=== PATIENT | female | born 1960 | race Caucasian/White ===

== ENCOUNTER 2021-10-25 10:07 | Outpatient (CLI) | payer BC, SELFPAY ==
[2021-10-25 14:15] LABS: Albumin* 4.1 g/dL (3.3-5.0); Chloride* 106 mmol/L (96-114)
[2021-10-25 14:16] LABS: Potassium* 3.9 mmol/L (3.6-5.1); Sodium* 139 mmol/L (135-149)
[2021-10-25 14:18] LABS: Alkaline Phosphatase* 71 U/L (40-150); Aspartate Amino Transferase* 24 U/L (12-35); Bilirubin Total* 0.6 mg/dL (0.1-1.5); Blood Urea Nitrogen* 18 mg/dL (7-30); Carbon Dioxide* 30 mmol/L (20-32); Creatinine* 0.7 mg/dL (0.5-1.5); Estimated Glomerular Filt Rate 98 ml/min; Total Protein* 6.5 g/dL (6.0-8.3)
[2021-10-25 14:19] LABS: Alanine Aminotransferase* 17 U/L (4-35); Calcium* 9.1 mg/dL (8.4-10.6); Glucose* 93 mg/dL (60-115)
== END 2021-10-25 10:08 | disposition home or self-care (01) ==
LOC: NFLDREF 10:08
PROVIDERS: PCP Internal Medicine; Visit Provider Internal Medicine
DX: F10.10 Alcohol abuse, uncomplicated (principal)
CPT/HCPCS: 80053

== ENCOUNTER 2021-12-01 09:19 | Outpatient (CLI) | payer BC, SELFPAY ==
--- NOTE | 2021-12-01 09:15 | CRLHL7_ITS ---
For Patients: As a result of the Century Cures Act, medical imaging exams and procedure reports are released immediately into your electronic medical record. You may view this report before your referring provider. If you have questions, please contact your health care provider. BILATERAL MAMMOGRAM WITH COMPUTER-AIDED DETECTION AND TOMOSYNTHESIS TECHNIQUE: CC and MLO views were obtained. These mammographic images have been obtained using full-field digital technique. These mammographic images were interpreted with the benefit of computer-aided detection. Breast Tomosynthesis was used in this interpretation. COMPARISON FILM: 11/26/20, 09/25/19, 08/30/18 [facility]. FINDINGS: There are scattered areas of fibroglandular density IMPRESSION: There is no radiographic evidence for malignancy. ASSESSMENT: BI-RADS Category 1: Negative RECOMMENDATION: Routine screening mammogram in 1 year. A lay language report of this examination will be provided to the patient. Chapito Rosenberg M.D. Diagnostic Radiologist [email or web address] DSM/bhe be/Dictated by: Chapito Rosenberg MD @ 12/01/2021 11:44:00 AM (Electronically Signed)
== END 2021-12-01 09:20 | disposition home or self-care (01) ==
LOC: MAMMO 09:20
PROVIDERS: PCP Internal Medicine; Visit Provider Internal Medicine
DX: Z12.31 Encounter for screening mammogram for malignant neoplasm of breast (principal)
CPT/HCPCS: 77063; 77067

== ENCOUNTER 2023-01-05 09:12 | Outpatient (CLI) | payer OTHER, SELFPAY | END 2023-01-05 09:13 | disposition home or self-care (01) | LOC: NFLDREF 01-06 09:09 | PROVIDERS: PCP Internal Medicine; Referring Provider Internal Medicine; Visit Provider Internal Medicine | DX: M85.80 Other specified disorders of bone density and structure, unspecified site (principal); Z13.6 Encounter for screening for cardiovascular disorders | CPT/HCPCS: 80061; 82306 ==

== ENCOUNTER 2023-03-24 14:14 | Outpatient (CLI) | payer OTHER, SELFPAY ==
--- NOTE | 2023-03-24 14:40 | CRLHL7_ITS ---
For Patients: As a result of the Cures Act, medical imaging exams and procedure reports are released immediately into your electronic medical record. You may view this report before your referring provider. If you have questions, please contact your health care provider. BILATERAL SCREENING MAMMOGRAM WITH COMPUTER-AIDED DETECTION AND TOMOSYNTHESIS TECHNIQUE: CC and MLO views were obtained. These mammographic images have been obtained using full-field digital technique. These mammographic images were interpreted with the benefit of computer-aided detection. Breast Tomosynthesis was used in this interpretation. COMPARISON FILM: 12/01/21, 11/26/20, 09/25/19. FINDINGS: There are scattered areas of fibroglandular density IMPRESSION: There is no radiographic evidence for malignancy. ASSESSMENT: BI-RADS Category 2: Benign RECOMMENDATION: Routine screening mammogram in 1 year. A lay language report of this examination will be provided to the patient. HIPOLITO POLO MD Diagnostic/Nuclear Medicine Radiologist [email or web address] AMAYA/jose be/Dictated by: Hipolito Polo MD @ 03/27/2023 8:34:00 AM (Electronically Signed)
== END 2023-03-24 14:15 | disposition home or self-care (01) ==
LOC: MAMMO 14:15
PROVIDERS: PCP Internal Medicine; Visit Provider Internal Medicine
DX: Z12.31 Encounter for screening mammogram for malignant neoplasm of breast (principal)
CPT/HCPCS: 77063; 77067

== ENCOUNTER 2023-04-15 11:19 | Outpatient (CLI) | payer OTHER, SELFPAY ==
--- OUTSIDE RECORDS SUMMARY | 2023-04-20 10:08 | XMS_ITS | Encounter Summary ---
Author Name Unknown Organization [facility] Address [address], [place] [address] Care Team Providers Care Medical Service Technician Name Role Phone Found, No Pcp MD Primary Care Provider Unavailab le Encounter Details Date Type Department Care Team Description 11/14/2022 9:30 AM CDT Lab Visit [facility] [address] [place] [address] Psoriatic arthritis (HRC); Medication monitoring encounter Social History Tobacco Use Types Packs/Day Years Used Date Smoking Tobacco: Never Smokeless Tobacco: Never Alcohol Use Standard Drinks/Week Comments Yes 10 (1 standard drink = 0.6 oz pu re alcohol) Sex and Gender Information Value Date Recorded Sex Assigned at Not on file Gender Identity Not on file Sexual Orientation Not on file documented as of this encounter Plan of Treatment Upcoming Encounters Date Type Department Care Team Description 06/16/2023 11:15 AM EMAIL MANAGER Appointment [facility] [address] [place] [address] Quinn Oh MD [address] [place] [address] documented as of this encounter Procedures Procedure Name Priority Date/Time Associated Diagnosis Comments CBC AND DIFFERENTIAL PANEL Routine 11/14/2022 9:36 AM CDT Psoriatic arthritis (HRC) Medication monitoring encounter CREATININE / GFR Routine 11/14/2022 9:36 AM CDT Psoriatic arthritis (HRC) Medication monitoring encounter COMPLETE BLOOD COUNT-W/DIFF Routine 11/14/2022 9:36 AM CDT Psoriatic arthritis (HRC) Medication monitoring encounter ALT (SGPT) Routine 11/14/2022 9:36 AM CDT Psoriatic arthritis ([facility]) Medication monitoring encounter documented in this encounter Results * Complete Blood Count-W/Diff (11/14/2022 9:36 AM CDT) [facility] WBC 8.5 3.5 - 10.5 x10(9)/L 11/14/2022 9:48 AM [facility] RBC 4.56 3.90 - 5.03 x10(12)/L 11/14/2022 9:48 AM [facility] Hemoglobin 13.6 12.0 - 15.5 g/dL 11/14/2022 9:48 AM [facility] HCT 41.1 34.9 - 44.5 % 11/14/2022 9:48 AM [facility] MCV 90.1 80.0 - 100.0 fL 11/14/2022 9:48 AM [facility] MCH 29.8 27.6 - 33.3 pg 11/14/2022 9:48 AM [facility] MCHC 33.1 31.5 - 35.2 g/dL 11/14/2022 9:48 AM [facility] RDW 13.3 11.9 - 15.5 % 11/14/2022 9:48 AM [facility] Platelets 317 150 - 450 x10(9)/L 11/14/2022 9:48 AM [facility] Neutrophil Absolute 3.4 1.7 - 7.0 10(9)/L 11/14/2022 9:48 AM [facility] Lymphocyte Absolute 4.2 1.0 - 4.8 10(9)/L 11/14/2022 9:48 AM [facility] Monocyte Absolute 0.8 0.2 - 0.9 10(9)/L 11/14/2022 9:48 AM [facility] Eosinophil Absolute 0.1 0.0 - 0.5 10(9)/L 11/14/2022 9:48 AM [facility] Basophil Absolute 0.0 0.0 - 0.3 10(9)/L 11/14/2022 9:48 AM CDT [facility] Immature Granulocyte % 0.1 0.0 - 0.5 % 11/14/2022 9:48 AM CDT [facility] Blood Venipuncture / Unknown 11/14/2022 9:36 AM CDT 11/14/2022 9:36 AM CDT Quinn Oh MD LAB_1 Performing Organization Address [facility]/ZIP Co de Phone Number [facility] [address] [place] [address], [place] [phone] * Creatinine / GFR (monthly) (11/14/2022 9:36 AM CDT) Creatinine 0.70 0.55 - 1.02 mg/dL 11/14/2022 1:18 PM CDT [facility] GFR, Estimated >60 >60 mL/min/1.7 3m2 11/14/2022 1:18 PM CDT [facility] Blood Venipuncture / Unknown 11/14/2022 9:36 AM CDT 11/14/2022 9:36 AM CDT Quinn Oh MD LAB_1 Performing Organization Address [facility] de Phone Number [facility] [address] [place] [address], [facility] [phone] * ALT (SGPT) (monthly) (11/14/2022 9:36 AM CDT) ALT (SGPT) 21 <=55 U/L 11/14/2022 1:18 PM CDT [facility] Blood Venipuncture / Unknown 11/14/2022 9:36 AM CDT 11/14/2022 9:36 AM CDT Quinn Oh MD LAB_1 Performing Organization Address [facility] Co de Phone Number [facility] [address] [place] [address], [facility] [phone] documented in this encounter Visit Diagnoses Diagnosis Psoriatic arthritis (HRC) Psoriatic arthropathy Medication monitoring encounter Encounter for therapeutic drug monitoring documented in this encounter Care Teams Medical Service Technician Relationship Specialty Start Date End Date Found, No Pcp, [address] [place] [address] PCP - General 11/26/21 documented as of this encounter
--- OUTSIDE RECORDS SUMMARY | 2023-04-20 10:08 | XMS_ITS | Encounter Summary ---
Author Name Unknown [facility] Address [address] [place] [address] Care Team Providers Care Stadium Manager Name Role Phone Found, No Pcp Primary Care Provider Unavailab le Encounter Details Date Type Department Care Team Description 03/16/2023 E-Visit [facility] [address] [place] [address] Quinn Oh MD [address] [place], [place] [address] Social History Tobacco Use Types Packs/Day Years [...] Department Care Team Description 06/16/2023 11:15 AM RF TEST ENGINEER Appointment [facility] [address] [place] [address] Quinn Oh MD [address] [place] [address] documented as of this encounter Visit Diagnoses Not on filedocumented in this encounter Care Teams Stadium Manager Relationship Specialty Start Date End Date Found, No Pcp, [address] [place] [address] PCP - General 11/26/21 documented as of this encounter
--- OUTSIDE RECORDS SUMMARY | 2023-04-20 10:08 | XMS_ITS | Encounter Summary ---
Author Name Unknown Organization [facility] Address [address], [place] [address] Care Team Providers Care Fitness Coach Name Role Phone Found, No Pcp MD Primary Care Provider Unavailab le Reason for Visit * Reason Comments Prior Authorization For Medication Anthony Encounter Details Date Type Department Care Team Description 03/16/2023 Telephone [place] [address] [place] [address]. [place], [place] [phone] Quinn Oh MD [address] [place] [id number] Prior Authorization For Medication (Anthony) Social History Tobacco Use Types Packs/Day Years Used Date Smoking Tobacco: Never Smokeless Tobacco: Never Alcohol Use Standard Drinks/Week Comments Yes 10 (1 standard drink = 0.6 oz pu re alcohol) Sex and Gender Information Value Date Recorded Sex Assigned at Not on file Gender Identity Not on file Sexual Orientation Not on file documented as of this encounter Nursing Notes * Quinn Oh MD - 03/22/2023 4:07 PM CST I called the patient to discuss the potential for allergic reaction to ixekizumab given her prior reaction to dupilumab. She noted that dupilumab caused fairly widespread hives. After some discussionwe decided to pursue alternative treatment. I will do some investigation and get back to her. DENTIAL GAS HEAT TECHNICIAN * Carol Valenzuela - 03/16/2023 4:56 PM CST Anthony CONTI to insurance is Approved, curly t'd to speciality pharmacy [facility]. DENTIAL GAS HEAT TECHNICIAN * Carol Valenzuela - 03/16/2023 4:26 PM CST ----- Message from Quinn Oh MD sent at 03/15/2023 2:53 PM RESIDENTIAL GAS HEAT TECHNICIAN ----- Jomar Cox, could we pursue a change from etanercept to ixekizumab for psoriatic arthritis management?Boris DENTIAL GAS HEAT TECHNICIAN documented in this encounter Plan of Treatment Upcoming Encounters Date Type Department Care Team Description 06/16/2023 11:15 AM RESIDENTIAL GAS HEAT TECHNICIAN Appointment [facility] [address] [place], [place] [address] Quinn Oh MD [facility] [place], [place] [phone] documented as of this encounter Visit Diagnoses Diagnosis Psoriatic arthritis (HRC)- Primary Psoriatic arthropathy documented in this encounter Care Teams Fitness Coach Relationship Specialty Start Date End Date Found, No Pcp, [address] [place] [address] PCP - General 11/26/21 documented as of this encounter
--- OUTSIDE RECORDS SUMMARY | 2023-04-20 10:08 | XMS_ITS | Encounter Summary ---
Author Name Unknown Organization [facility] Address [address], [place] [address] Care Team Providers Care Claim Investigator Name Role Phone Found, No Pcp MD Primary Care Provider Unavailab le Encounter Details Date Type Department Care Team Description 03/13/2023 9:30 AM AIRCRAFT MAINTENANCE DIRECTOR Lab Visit [facility] [address] [place] [address] Psoriatic arthritis (HRC); Medication monitoring encounter; Osteopenia with high risk of fracture; 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 Social History Tobacco Use Types Packs/Day Years [...] Department Care Team Description 06/16/2023 11:15 AM AIRCRAFT MAINTENANCE DIRECTOR Appointment [facility] [address] [place], [place] [address] Quinn Oh MD [facility] [place], [place] [address] documented as of this encounter Procedures Procedure Name Priority Date/Time Associated Diagnosis Comments CBC AND DIFFERENTIAL PANEL Routine 03/13/2023 9:31 AM AIRCRAFT MAINTENANCE DIRECTOR Psoriatic arthritis (HRC) Medication monitoring encounter PROTEIN ELECTROPHORESIS, SERUM DIAGNOSTIC Routine 03/13/2023 9:31 AM AIRCRAFT MAINTENANCE DIRECTOR 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 FREE LIGHT CHAINS, SERUM Routine 03/13/2023 9:31 AM AIRCRAFT MAINTENANCE DIRECTOR 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 ELECTROPHORESIS, SERUM PROTEIN DIAGNOSTIC PANEL Routine 03/13/2023 9:31 AM AIRCRAFT MAINTENANCE DIRECTOR 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 CREATININE / GFR Routine 03/13/2023 9:31 AM AIRCRAFT MAINTENANCE DIRECTOR Psoriatic arthritis ([facility]) Medication monitoring encounter COMPLETE BLOOD COUNT-W/DIFF Routine 03/13/2023 9:31 AM AIRCRAFT MAINTENANCE DIRECTOR Psoriatic arthritis ([facility]) Medication monitoring encounter C-REACTIVE PROTEIN Routine 03/13/2023 9: 31 AM AIRCRAFT MAINTENANCE DIRECTOR 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 ALT (SGPT) Routine 03/13/2023 9:31 AM AIRCRAFT MAINTENANCE DIRECTOR Psoriatic arthritis ([facility]) Medication monitoring encounter CALCIUM Routine 03/13/2023 9:31 AM AIRCRAFT MAINTENANCE DIRECTOR Osteopenia with high risk of fracture documented in this encounter Results * Protein Electrophoresis, Serum Diagnostic (03/13/2023 9:31 AM AIRCRAFT MAINTENANCE DIRECTOR) Total Protein 6.9 6.4 - 8.3 g/dL 03/14/2023 12:08 PM [facility] Albumin 4.5 3.4 - 4.8 g/dL 03/14/2023 12:08 PM [facility] Alpha 1 0.2 0.2 - 0.5 g/dL 03/14/2023 12:08 PM [facility] Alpha 2 0.6 0.5 - 1.1 g/dL 03/14/2023 12:08 PM [facility] Beta 0.7 0.6 - 1.1 g/dL 03/14/2023 12:08 PM [facility] Gamma 0.8 0.7 - 1.6 g/dL 03/14/2023 12:08 PM [facility] Monoclonal Dash 0.0 <=0.0 g/dL 03/14/2023 12:08 PM COUNT INCLUDES THE [facility] Interpretation No monoclonal protein is detected in the serum. 03/14/2023 12:08 PM COUNT INCLUDES THE [facility] Signed Out By [facility] 03/14/2023 12:08 PM [facility] Additional Testing Additional reflex testing not indicated per protocol. 03/14/2023 12:08 PM [facility] Blood Venipuncture / Unknown 03/13/2023 9:31 AM AIRCRAFT MAINTENANCE DIRECTOR 03/13/2023 9:31 AM [facility] Quinn Oh MD LAB_1 Performing Organization Address [facility] Co de Phone Number [facility] [address] [place] [address], [facility] [phone] * Free Light Chains, Serum (03/13/2023 9:31 AM AIRCRAFT MAINTENANCE DIRECTOR) KAPPA LIGHT CHAINS FREE 1.16 0.33 - 1.94 mg/dL 03/14/2023 9:40 AM [facility] FREE LAMBDA, SERUM 0.81 0.57 - 2.63 mg/dL 03/14/2023 9:40 AM [facility] FREE K/L RATIO, SERUM 1.43 0.26 - 1.65 03/14/2023 9:40 AM [facility] Blood Venipuncture / Unknown 03/13/2023 9:31 AM AIRCRAFT MAINTENANCE DIRECTOR 03/13/2023 9:31 AM AIRCRAFT MAINTENANCE DIRECTOR Quinn Oh MD LAB_1 Performing Organization Address [facility]/ZIP Co de Phone Number [facility] [address] [phone] * Complete Blood Count-W/Diff (03/13/2023 9:31 AM [facility]) WBC 4.5 3.5 - 10.5 x10(9)/L 03/13/2023 9:37 AM [facility] RBC 4.49 3.90 - 5.03 x10(12)/L 03/13/2023 9:37 AM [facility] Hemoglobin 13.2 12.0 - 15.5 g/dL 03/13/2023 9:37 AM [facility] HCT 39.8 34.9 - 44.5 % 03/13/2023 9:37 AM [facility] MCV 88.6 80.0 - 100.0 fL 03/13/2023 9:37 AM [facility] MCH 29.4 27.6 - 33.3 pg 03/13/2023 9:37 AM [facility] MCHC 33.2 31.5 - 35.2 g/dL 03/13/2023 9:37 AM [facility] RDW 12.9 11.9 - 15.5 % 03/13/2023 9:37 AM [facility] Platelets 293 150 - 450 x10(9)/L 03/13/2023 9:37 AM [facility] Neutrophil Absolute 2.2 1.7 - 7.0 10(9)/L 03/13/2023 9:37 AM [facility] Lymphocyte Absolute 1.7 1.0 - 4.8 10(9)/L 03/13/2023 9:37 AM [facility] Monocyte Absolute 0.5 0.2 - 0.9 10(9)/L 03/13/2023 9:37 AM [facility] Eosinophil Absolute 0.1 0.0 - 0.5 10(9)/L 03/13/2023 9:37 AM [facility] Basophil Absolute 0.0 0.0 - 0.3 10(9)/L 03/13/2023 9:37 AM [facility] Immature Granulocyte % 0.2 0.0 - 0.5 % 03/13/2023 9:37 AM [facility] Blood Venipuncture / Unknown 03/13/2023 9:31 AM AIRCRAFT MAINTENANCE DIRECTOR 03/13/2023 9:31 AM AIRCRAFT MAINTENANCE DIRECTOR Quinn Oh MD LAB_1 [facility] [address] [place] [address], [facility] [phone] * C-Reactive Protein (03/13/2023 9:31 AM AIRCRAFT MAINTENANCE DIRECTOR) C-Reactive Protein <0.5 0.0 - 0.5 mg/dL 03/13/2023 2:56 PM [facility] Blood Venipuncture / Unknown 03/13/2023 9:31 AM AIRCRAFT MAINTENANCE DIRECTOR 03/13/2023 9:31 AM AIRCRAFT MAINTENANCE DIRECTOR Quinn Oh MD LAB_1 Performing Organization Address [facility]/ZIP Co de Phone Number [facility] [address] [place] [address], [facility] [phone] * Calcium (03/13/2023 9:31 AM AIRCRAFT MAINTENANCE DIRECTOR) Calcium 9.0 8.4 - 10.4 mg/dL 03/13/2023 2:56 PM [facility] Blood Venipuncture / Unknown 03/13/2023 9:31 AM AIRCRAFT MAINTENANCE DIRECTOR 03/13/2023 9:31 AM AIRCRAFT MAINTENANCE DIRECTOR Quinn Oh MD LAB_1 Performing Organization Address [facility] de Phone Number [facility] [id number] [place] [address], [facility] [phone] * Creatinine / GFR (monthly) (03/13/2023 9:31 AM AIRCRAFT MAINTENANCE DIRECTOR) Creatinine 0.70 0.55 - 1.02 mg/dL 03/13/2023 2:56 PM [facility] GFR, Estimated >60 >60 mL/min/1.7 3m2 03/13/2023 2:56 PM [facility] Blood Venipuncture / Unknown 03/13/2023 9:31 AM AIRCRAFT MAINTENANCE DIRECTOR 03/13/2023 9:31 AM AIRCRAFT MAINTENANCE DIRECTOR Quinn Oh MD LAB_1 Performing Organization Address [facility] Co de Phone Number [facility] [address] [place] [address], [facility] [phone] * ALT (SGPT) (monthly) (03/13/2023 9:31 AM AIRCRAFT MAINTENANCE DIRECTOR) ALT (SGPT) 21 <=55 U/L 03/13/2023 3:46 PM AIRCRAFT MAINTENANCE DIRECTOR [facility] Blood Venipuncture / Unknown 03/13/2023 9:31 AM AIRCRAFT MAINTENANCE DIRECTOR 03/13/2023 9:31 AM AIRCRAFT MAINTENANCE DIRECTOR Quinn Oh MD LAB_1 [facility] [address] [place] [address], [facility] [phone] documented in this encounter Visit Diagnoses Diagnosis Psoriatic arthritis (HRC) Psoriatic arthropathy Medication monitoring encounter Encounter for therapeutic drug monitoring Osteopenia with high risk of fracture 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 documented in this encounter Care Teams Claim Investigator Relationship Specialty Start Date End Date Found, No Pcp, [address] [place] [address] PCP - General 11/26/21 documented as of this encounter
--- OUTSIDE RECORDS SUMMARY | 2023-04-20 10:08 | XMS_ITS | Encounter Summary ---
Author Name [facility] Address [address] [place] [address] Care Team Providers Care Manager Heavy Duty Name Role Phone Found, No Pcp MD Primary Care Provider Unavailab le Reason for Visit * Reason Comments Follow-up Encounter Details Date Type Department Care Team Description 03/15/2023 11:45 AM NUMERICAL TOOL PROGRAMMER Office Visit [facility] [address] [place], [place] [phone] Quinn Oh MD [address] [place] [phone] Psoriatic arthritis (HRC) (Primary Dx); 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; Arthritis of carpometacarpal (CMC) joint of both thumbs; Osteopenia with high risk of fracture; Alcohol use; 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); Vaccine counseling Social History Tobacco Use Types Packs/Day Years Used Date Smoking Tobacco: Never Smokeless Tobacco: Never Alcohol Use Standard Drinks/Week Comments Yes 10 (1 standard drink = 0.6 oz pu re alcohol) Sex and Gender Information Value Date Recorded Sex Assigned at Not on file Gender Identity Not on file Sexual Orientation Not on file documented as of this encounter Last Filed Vital Signs Vital Sign Reading Time Taken Comments Blood Pressure 123/78 03/15/2023 11:43 AM NUMERICAL TOOL PROGRAMMER Pulse 71 03/15/2023 11:43 AM NUMERICAL TOOL PROGRAMMER Temperature 36.7 ??C (98 ??F) 03/15/2023 11:43 AM NUMERICAL TOOL PROGRAMMER Respiratory Rate - - Oxygen Saturation - - Inhaled Oxygen Concentration - - Weight - - Height - - Body Mass Index - - documented in this encounter Patient Instructions * Patient Instructions* Quinn Oh MD - 03/15/2023 11:45 AM NUMERICAL TOOL PROGRAMMER You continue to have inflammation in your hands. This is more apparent now with the reduced Enbrel dose. Let's pursue switching to a different medication (Taltz) instead to see if we can get better control. Good job reducing alcohol use. If you are able to eliminate alcohol there are a few additional treatment options available (methotrexate and leflunomide). Continue Fosamax. Be sure to get adequate calcium and vitamin D. Repeat bone density study around 01/2024. Shingrix and RSV vaccinations recommended. Follow-up with labs in 3-4 months. RICAL TOOL PROGRAMMER documented in this encounter Progress Notes * Quinn Oh MD - 03/15/2023 11:45 AM CST RHEUMATOLOGY PROGRESS NOTE Patient: Duyen Miller Preferred Name: Duyen Reason for visit: Eosinophilic fasciitis, psoriatic arthritis, clinical osteporosis Other History: chronic systemic corticosteroid use, anxiety, panic attacks Rheumatic Disease History: The patient follows with Rheumatology for eosinophilic fasciitis and psoriatic arthritis. She established with [facility] in November of 2021. She apparently developed nail psoriasis in 2015. In November of 2017 she developed a hard lump on her right shoulder blade. This was biopsied and found to bemorphea (We do not have records of this pathology). In early February 2018 she rapidly developed limb pain and skin thickening with peau d'orange and morphea (She does not remember ever having a groove sign). She apparently underwent extensive multispecialty evaluation and was ultimately diagnosed with eosinophilic fasciitis based on pathology from a biopsy of her right volar forearm. She was started on prednisone 70 mg per day and slowly weaned down. She noted significant improvement in her skin findings but residual skin tightening on the anterior shins. Rheumatologic Serologies: Positive: None Negative: GUI, double-stranded DNA, MARTINA panel, anticentromere antibody, rheumatoid factor, CCP, HLA-B27 Rheumatologic medications: Current: - Etanercept 50 mg weekly - reduced frequency due to cost - Alendronate 70 mg weekly Prior: Adalimumab, meloxicam, sulfasalazine (photosensitive reaction), methotrexate History of Present Illness: Interval history reviewed. The patient received influenza and updated COVID vaccines. Today the patient reports that she ran out of her Enbrel co-pay card and thus has been rationing her remaining Enbrel shots until the end of the year. She feels like her arthritis has worsened since that time. Shenotes pain particularly in her upper extremities. She feels like there is some swelling in her fingers. She did stop doing her physical therapy exercises for shoulder pain. These have previously beeneffective. She continues on alendronate as prescribed. She continues take calcium and vitamin-D supplements. She denies any new skin rashes or thickening. She continues to decrease alcohol consumption but would like to decrease it further. Social History: She is from [facility]. She has lived in [place] and [place] and moved back to [place] in July of 2021. 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 She loves genealogy. Pain & RAPID3: In flowsheet if completed by patient. Pain 4; RAPID-3 10 OBJECTIVE Physical Examination: VS: BP 123/78 (BP Location: Right Arm, BP Cuff Size: Regular) Pulse 71 Temp 98 ??F (36.7 ??C) (Temporal Artery) General: alert, oriented, no acute distress Skin: onycholysis at several fingernails, chronic smooth shiny skin along the bilateral anterior shins, small flesh-colored bump with scaling on the scalp Eyes: Externally clear ENT: moist mucous membranes without ulcerations noted, nares clear without blood Cardio: regular rate and rhythm on auscultation without significant murmurs, rubs, or gallops Lungs: clear to auscultation bilaterally Lower Extremities: no edema noted Musculoskeletal: All four limbs examined. Tenderness at the bilateral CMC joints. Swelling and tenderness at the 1-5 MCP joints bilaterally, tenderness at several PIP joints bilaterally. Normal rangeof motion in all joints. No dactylitis noted. No pain with pressure at the bilateral medial and lateral epicondyles or the bilateral plantar fascia or Achilles tendon insertion sites. Vascular: palpable radial and dorsalis pedis pulses bilaterally Laboratory Data: - SPEP without monoclonal protein or polyclonal hypergammaglobulinemia - normal free light chain ratio - WBC 4.5, Hgb 13.2, Plt 293, ANC 2.2 - Creatinine 0.7 - ALT 21 - Calcium 9 - CRP <0.5 Radiographic Information: None Microbiology: None Pathology: None Assessment/Plan Duyen Miller is a pleasant 62 y.o. female who presented to the rheumatology department for eosinophilic fasciitis. The patient and I reviewed her evaluation together. Her eosinophilic fasciitis seems to remain under good control. She does however have worsening inflammatory arthritis. We discussed options for management. Unfortunately methotrexate and leflunomide cannot be used due to her alcohol use and she had a reaction to sulfasalazine. We again encouraged her to cut down on alcohol use. For now we will pursue a change from etanercept to ixekizumab. We discussed risks including cold symptoms, diarrhea, upper respiratory tract infections, injection site reactions, immunosuppression with increased risk for infections, reactivation of latent tuberculosis, and new or worsening inflammatory bowel disease(Crohn's disease or ulcerative colitis). A pamphlet on this medication was printed, reviewed with, and provided to the patient. She should continue with current management for osteoporosis. We reviewed her vaccination record and made several recommendations. 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 with high FRAX (22.5% Major osteoporotic fracture risk) on alendronate (started 08/2018 per patient) - Continue appropriate calcium (1200 mg daily in diet and supplements combined) and Vitamin D intake (800 IU daily) - Discussed lifestyle modifications: minimizing falls, attention to balance, weight-bearing exercise, limiting alcohol use, avoiding/minimizing tobacco use, optimizing nutrition - Continue alendronate 70 mg by mouth once per week - Repeat DXA 01/2024 - possible bisphosphonate holiday then #5 Alcohol use - Advised continued decreases #6 Immunosuppression: etanercept #7 Medication safety monitoring: etanercept #8 Vaccination Discussion - Etanercept monitoring: CBC with differential annually - Influenza: recommended annually, 01/30 - COVID: Pfizer 06/28, 07/29, 03/30, Moderna 08/29, bivalent 03/01, 23-24 01/30 - Pneumonia: PPSV23 01/11/2020, PCV20 08/12/2022 - Tetanus: last done in 08/2017 per patient - Shingles: Shingrix recommended - RSV: Recommended RICAL TOOL PROGRAMMER documented in this encounter Plan of Treatment Upcoming Encounters Date Type Department Care Team Description 06/16/2023 11:15 AM NUMERICAL TOOL PROGRAMMER Appointment [facility] [address] [place] [address] Quinn Oh MD [address] [place], [place] [phone] documented as of this encounter Visit Diagnoses Diagnosis Psoriatic arthritis (HRC)- Primary Psoriatic arthropathy 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 Arthritis of carpometacarpal (CMC) joint of both thumbs Osteopenia with high risk of fracture Alcohol use Other problems related to lifestyle 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
--- OUTSIDE RECORDS SUMMARY | 2023-04-20 10:08 | XMS_ITS | Clinical Summary ---
Author Name Unknown Organization [facility] Address [address] [place] [address] Care Team Providers Care Senior Behavioral Scientist Name Role Phone Found, No Pcp MD Primary Care Provider Unavailab le Source Comments You are receiving this document as you are listed as the primary care provider,follow-up provider, or the patient has been referred to you for consultation.This is in compliance with the Medicare and[facility] EHR Incentive Program,which states Providers who transition their patient to another setting of careor provider of care or refers their patient to another provider of care shouldprovide summary care record for each transition of care or referral. [facility] Allergies Active Allergy Reactions Criticality Noted Date Comments Dupilumab Hives High 11/26/2021 Medications Medication Sig Dispensed Refills Start Date End Date Status alendronate (FOSAMAX) 70 MG tablet Take 1 Tablet (70 mg) by mouth once every week. 0 09/30/2021 Active gabapentin (NEURONTIN) 600 MG tablet Take 1 Tablet (600 mg) by mouth three times a day. Pt takes 2 tabs daily 0 06/17/2021 Active oxyCODONE-acetaminophe n (PERCOCET) 5-325 MG tablet Take 1 Tablet by mouth as needed. 0 09/02/2021 Active PARoxetine (PAXIL) 40 MG tablet Take 1 Tablet (40 mg) by mouth daily. 0 11/25/2021 Active valACYclovir (VALTREX) 500 MG tablet Take 1 Tablet (500 mg) by mouth daily. 0 09/16/2021 Active betamethasone dipropionate (DIPROLENE-AF) 0.05 % AUGMENTED creamIndications:Pruri tus Apply topically two times daily as needed. Apply thin coat to the itchy area in the upper back twice a day as needed 60 g 1 06/07/2022 Active Active Problems Problem Noted Date Diagnosed Date Arthritis of carpometacarpal (CMC) joint of both thumbs 04/29/2022 Eosinophilic fasciitis determined by biopsy of s kin 11/26/2021 Psoriatic arthritis 11/26/2021 Osteopenia with high risk of fracture 11/26/2021 Anxiety 11/26/2021 Panic attacks 11/26/2021 Situational depression 11/26/2021 detention current use of systemic steroids 11/26 Immunosuppression due to drug therapy 11/26/2021 Encounters Date Type Department Care Team Description 03/16/2023 E-Visit [facility] [address] [place] [address] Quinn Oh MD 03/16/2023 Telephone [place] [address] [place] [address]. 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); Vaccine counseling 03/13/2023 9:30 AM RICE FARMWORKER Lab Visit [address] [address] Psoriatic arthritis (HRC); Medication monitoring encounter; Osteopenia with high risk of fracture; 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 from Last 3 Months Immunizations Name Administration Dates Next Due PCV20 ([id number]) 08/12/2022 Family History Medical History Relation Name Comments Arthritis Father Heart Disease Father Relation Name Status Comments Father Social History Tobacco Use Types Packs/Day Years Used Date Smoking Tobacco: Never Smokeless Tobacco: Never Tobacco Cessation:Counseling Given: Not Answered Alcohol Use Standard Drinks/Week Comments Yes 10 (1 standard drink = 0.6 oz pu re alcohol) Sex and Gender Information Value Date Recorded Sex Assigned at Not on file Gender Identity Not on file Sexual Orientation Not on file Last Filed Vital Signs Vital Sign Reading Time Taken Comments Blood Pressure 123/78 03/15/2023 11:43 AM RICE FARMWORKER Pulse 71 03/15/2023 11:43 AM RICE FARMWORKER Temperature 36.7 ??C (98 ??F) 03/15/2023 11:43 AM RICE FARMWORKER Respiratory Rate - - Oxygen Saturation - - Inhaled Oxygen Concentration - - Weight 64.7 kg (142 lb 9.6 oz) 11/16/2022 10:45 AM CDT Height 161.3 cm (5' 3.5) 11/26/2021 9:31 AM CDT Body Mass Index 24.86 11/26/2021 9:31 AM CDT Plan of Treatment Upcoming Encounters Date Type Department Care Team Description 06/16/2023 11:15 AM RICE FARMWORKER Appointment [facility] [address] [place], [place] [phone] Quinn Oh MD [facility] [place], [place] [phone] Health Maintenance Due Date Last Done Comments Cervical Cancer Screening Due 1959 Colon Cancer Screening Plan Due 1960 Mammogram 1959 COVID-19 Vaccine (#1) 01/02/1960 HIV Screening (Preventive Services) 1975 Adult Preventive Visit 07/01/1977 DTaP/Tdap/Td (1 - Tdap) 07/01/1978 Cholesterol 07/01/2004 Zoster/Shingles (1 of 2) 07/01/2009 Dexa 01/21/2024 01/20/2022 Hep C Screening (Preventive Services) Completed 11/26/2021 Pneumococcal Aged Out 08/12/2022, 01/11/2020 No longer eligible based on patient's age to complete this topic Influenza Completed 01/10/2023, 02/08/2022, 01/22/2021 HepA Aged Out No longer eligi ble based on patient's age to complete this topic HepB Aged Out No longer eligi ble based on patient's age to complete this topic Hib Aged Out No longer eligi ble based on patient's age to complete this topic IPV (Polio) Aged Out No longer eligi ble based on patient's age to complete this topic MCV4 Aged Out No longer eligi ble based on patient's age to complete this topic Procedures Procedure Name Priority Date/Time Associated Diagnosis Comments PROTEIN ELECTROPHORESIS, SERUM DIAGNOSTIC Routine 03/13/2023 9:31 AM RICE FARMWORKER 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 FREE LIGHT CHAINS, SERUM Routine 03/13/2023 9:31 AM RICE FARMWORKER 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 COMPLETE BLOOD COUNT-W/DIFF Routine 03/13/2023 9:31 AM RICE FARMWORKER Psoriatic arthritis (HRC) Medication monitoring encounter ELECTROPHORESIS, SERUM PROTEIN DIAGNOSTIC PANEL Routine 03/13/2023 9:31 AM RICE FARMWORKER 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 C-REACTIVE PROTEIN Routine 03/13/2023 9: 31 AM RICE FARMWORKER 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 CALCIUM Routine 03/13/2023 9:31 AM RICE FARMWORKER Osteopenia with high risk of fracture CREATININE / GFR Routine 03/13/2023 9:31 AM RICE FARMWORKER Psoriatic arthritis (HRC) Medication monitoring encounter CBC AND DIFFERENTIAL PANEL Routine 03/13/2023 9:31 AM RICE FARMWORKER Psoriatic arthritis (HRC) Medication monitoring encounter ALT (SGPT) Routine 03/13/2023 9:31 AM RICE FARMWORKER Psoriatic arthritis (HRC) Medication monitoring encounter from Last 3 Months Results * Protein Electrophoresis, Serum Diagnostic (03/13/2023 9:31 AM RICE FARMWORKER) Total Protein 6.9 6.4 - 8.3 g/dL 03/14/2023 12:08 PM [facility] Molecule [facility] [employer] CENTRAL LAB Albumin 4.5 3.4 - 4.8 g/dL 03/14/2023 12:08 PM RICE FARMWORKER [facility] [employer] C[facility] Alpha 1 0.2 0.2 - 0.5 g/dL 03/14/2023 12:08 PM [facility] CENTRAL LAB Alpha 2 0.6 0.5 - 1.1 g/dL 03/14/2023 12:08 PM [facility] CENTRAL LAB Beta 0.7 0.6 - 1.1 g/dL 03/14/2023 12:08 PM [facility] CENTRAL LAB Gamma 0.8 0.7 - 1.6 g/dL 03/14/2023 12:08 PM [facility]3] LAB Monoclonal Dash 0.0 <=0.0 g/dL 03/14/2023 12:08 PM [facility] CENTRAL LAB Interpretation No monoclonal protein is detected in the serum. 03/14/2023 12:08 PM [facility]3] LAB Signed Out By [facility] 03/14/2023 12:08 PM [facility]3] LAB Additional Testing Additional reflex testing not indicated per protocol. 03/14/2023 12:08 PM [facility]3] LAB Blood Venipuncture / Unknown 03/13/2023 9:31 AM RICE FARMWORKER 03/13/2023 9:31 AM RICE FARMWORKER Quinn Oh MD LAB_1 Performing Organization Address City/[facility]/ZIP Co de Phone Number [facility] [address] [phone] * Free Light Chains, Serum (03/13/2023 9:31 AM RICE FARMWORKER) KAPPA LIGHT CHAINS FREE 1.16 0.33 - 1.94 mg/dL 03/14/2023 9:40 AM [facility] CENTRAL LAB FREE LAMBDA, SERUM 0.81 0.57 - 2.63 mg/dL 03/14/2023 9:40 AM [facility]3] LAB FREE K/L RATIO, SERUM 1.43 0.26 - 1.65 03/14/2023 9:40 AM [facility]3] LAB Blood Venipuncture / Unknown 03/13/2023 9:31 AM RICE FARMWORKER 03/13/2023 9:31 AM RICE FARMWORKER Quinn Oh MD LAB_1 [facility] [address] [address], [facility] [phone] * Creatinine / GFR (monthly) (03/13/2023 9:31 AM RICE FARMWORKER) Creatinine 0.70 0.55 - 1.02 mg/dL 03/13/2023 2:56 PM [facility] GFR, Estimated >60 >60 mL/min/1.7 3m2 03/13/2023 2:56 PM [facility] Blood Venipuncture / Unknown 03/13/2023 9:31 AM RICE FARMWORKER 03/13/2023 9:31 AM [facility] Quinn Oh MD LAB_1 [facility] [address] [place] [address], [facility] [phone] * Complete Blood Count-W/Diff (03/13/2023 9:31 AM RICE FARMWORKER) WBC 4.5 3.5 - 10.5 x10(9)/L 03/13/2023 9:37 AM [facility] RBC 4.49 3.90 - 5.03 x10(12)/L 03/13/2023 9:37 AM [facility] Hemoglobin 13.2 12.0 - 15.5 g/dL 03/13/2023 9:37 AM [facility] HCT 39.8 34.9 - 44.5 % 03/13/2023 9:37 AM [facility] MCV 88.6 80.0 - 100.0 fL 03/13/2023 9:37 AM [facility] MCH 29.4 27.6 - 33.3 pg 03/13/2023 9:37 AM [facility] MCHC 33.2 31.5 - 35.2 g/dL 03/13/2023 9:37 AM [facility] RDW 12.9 11.9 - 15.5 % 03/13/2023 9:37 AM [facility] Platelets 293 150 - 450 x10(9)/L 03/13/2023 9:37 AM [facility] Neutrophil Absolute 2.2 1.7 - 7.0 10(9)/L 03/13/2023 9:37 AM [facility] Lymphocyte Absolute 1.7 1.0 - 4.8 10(9)/L 03/13/2023 9:37 AM [facility] Monocyte Absolute 0.5 0.2 - 0.9 10(9)/L 03/13/2023 9:37 AM [facility] Eosinophil Absolute 0.1 0.0 - 0.5 10(9)/L 03/13/2023 9:37 AM [facility] Basophil Absolute 0.0 0.0 - 0.3 10(9)/L 03/13/2023 9:37 AM [facility] Immature Granulocyte % 0.2 0.0 - 0.5 % 03/13/2023 9:37 AM [facility] Blood Venipuncture / Unknown 03/13/2023 9:31 AM RICE FARMWORKER 03/13/2023 9:31 AM RICE FARMWORKER Quinn Oh MD LAB_1 Performing Organization Address City/[facility]/ZIP Co de Phone Number [facility] [address] [place] [address], [facility] [phone] * C-Reactive Protein (03/13/2023 9:31 AM RICE FARMWORKER) C-Reactive Protein <0.5 0.0 - 0.5 mg/dL 03/13/2023 2:56 PM [facility] Blood Venipuncture / Unknown 03/13/2023 9:31 AM RICE FARMWORKER 03/13/2023 9:31 AM RICE FARMWORKER Quinn Oh MD LAB_1 Performing Organization Address City/[facility]/ZIP Co de Phone Number [facility] [address] [place] [address], [facility] [phone] * ALT (SGPT) (monthly) (03/13/2023 9:31 AM RICE FARMWORKER) ALT (SGPT) 21 <=55 U/L 03/13/2023 3:46 PM RICE FARMWORKER [facility] Blood Venipuncture / Unknown 03/13/2023 9:31 AM RICE FARMWORKER 03/13/2023 9:31 AM RICE FARMWORKER Quinn Oh MD LAB_1 Performing Organization Address [facility] Co de Phone Number [facility] [address] [place] [address], [facility] [phone] * Calcium (03/13/2023 9:31 AM RICE FARMWORKER) [facility] Signature Calcium 9.0 8.4 - 10.4 mg/dL 03/13/2023 2:56 PM RICE FARMWORKER [facility] Blood Venipuncture / Unknown 03/13/2023 9:31 AM RICE FARMWORKER 03/13/2023 9:31 AM RICE FARMWORKER Quinn Oh MD LAB_1 Performing Organization Address [facility] de Phone Number [facility] [address] [place] [address], [facility] [phone] from Last 3 Months Care Teams Senior Behavioral Scientist Relationship Specialty Start Date End Date Found, No Pcp, [address] [place] [place] [address] PCP - General 11/26/21
--- OUTSIDE RECORDS SUMMARY | 2023-04-20 10:08 | XMS_ITS | Encounter Summary ---
Author Name Unknown [facility] Address [address], [place] [address] Care Team Providers Care Alcohol Still Operator Name Role Phone Found, No Pcp MD Primary Care Provider Unavailab le Reason for Visit * Reason Comments Prior Authorization For Medication Enbre l continuation /Insurance change Encounter Details Date Type Department Care Team Description 11/16/[address] [place], [place] [phone] Quinn Oh MD [address] [place], [place] [phone] Prior Authorization For Medication (Enbrel continuation /Insurance change) Social History Tobacco Use Types Packs/Day Years Used Date Smoking Tobacco: Never Smokeless Tobacco: Never Alcohol Use Standard Drinks/Week Comments Yes 10 (1 standard drink = 0.6 oz pu re alcohol) Sex and Gender Information Value Date Recorded Sex Assigned at Not on file Gender Identity Not on file Sexual Orientation Not on file documented as of this encounter Nursing Notes * Carol Valenzuela - 11/16/2022 12:21 PM CDT Images from the original note were not included. Enbrel PA to insurance is Approved- script t'd to speciality [facility] documented in this encounter Plan of Treatment Upcoming Encounters Date Type Department Care Team Description 06/16/2023 11:15 AM PLUG MAKING OPERATOR Appointment [facility] [address] [place] [address] Quinn Oh MD [address] [place], [place] [phone] documented as of this encounter Visit Diagnoses Diagnosis Psoriatic arthritis (HRC) Psoriatic arthropathy documented in this encounter Care Teams Alcohol Still Operator Relationship Specialty Start Date End Date Found, No Pcp, [address] [place] [address] PCP - General 11/26/21 documented as of this encounter
--- OUTSIDE RECORDS SUMMARY | 2023-04-20 10:08 | XMS_ITS | Encounter Summary ---
Author Name Unknown Organization [facility] Address [address], [place] [address] Care Team Providers Care Maintenance Mechanic Engine Name Role Phone Found, No Pcp MD Primary Care Provider Unavailab le Reason for Referral * Procedure/Equipment (Routine) - Incomplete Specialty Diagnoses / Procedures Referred By Contac t Referred To Contact Diagnoses Osteopenia with high risk of fracture Procedures DXA Bone Density Spine/Hip Quinn Oh MD [address] [place] [address] Referral ID Status Reason Start Date Expiration Date V isits Requested Visits Authorized [id number] Incomplete 01/09/2024 04/09/2025 1 1 Reason for Visit * Reason Comments Follow-up Encounter Details Date Type Department Care Team Description 11/16/2022 10:45 AM CDT Office Visit [facility] [address] [place] [address] Quinn Oh MD [address] [place] [address] 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 (Primary Dx); Psoriatic arthritis (HRC); Osteopenia with high risk of fracture; Vaccine counseling; 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 Continue Enbrel and Fosamax. Be sure to get adequate calcium and vitamin D. Follow-up with labs in 3-4 months. Repeat bone density study around 01/2024. Shingrix vaccination. documented in this encounter Progress Notes * Quinn Oh MD - 11/16/2022 10:45 AM CDT RHEUMATOLOGY PROGRESS NOTE Patient: Duyen Miller Preferred Name: Duyen Reason for visit: Eosinophilic fasciitis and psoriatic arthritis Other History: low bone density, chronic systemic corticosteroid use, anxiety, panic attacks [...] factor, CCP, HLA-B27 Rheumatologic medications: Current: - Naproxen 500 mg twice daily as needed - taking once per day - Etanercept 50 mg weekly - Alendronate 70 mg weekly - patient stopped - Sulfasalazine - stopped due to photosensitive reaction Prior: Adalimumab, meloxicam, sulfasalazine, methotrexate History of Present Illness: Since the patient's last visit she met with physical therapy for shoulder pain. She also developed a photoallergic drug eruption from sulfasalazine. She met with dermatology for evaluation and management of this and was given a burst of prednisone. Today the patient shares that her photoallergic drug rash has cleared up. She has 1 more day of prednisone. She reports that she did not notice any benefit from the sulfasalazine. She is feeling welland denies inflammatory joint symptoms, skin psoriasis, or prolonged morning stiffness. She continues on etanercept once per week. She is pursuing getting Shingrix vaccination at the [facility] pharmacy. She continues to take calcium and vitamin-D but does miss doses from time to time. She did resume alendronate and is tolerating it well. She continues to consume about 3-4 bottles of wine per week. She has not had return of skin thickening. Her shoulders are significantly improved with physical therapy. The patient denies other recent changes to their health history such as new allergies, medications,surgeries, hospitalizations, or medical illnesses. Social History: She is from [facility]. She has lived in [place] and [place] and moved back to [place] in July of 2021. 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 She loves [employer]. Pain & RAPID3: In flowsheet if completed by patient. Pain 2; RAPID-3 5.8 OBJECTIVE Physical Examination: VS: BP 131/77 (BP Location: Left Arm, BP Cuff Size: Regular) Pulse 90 Wt 142 lb 9.6 oz (64.7 kg) BMI 24.86 kg/m?? General: alert, oriented, no acute distress Skin: onycholysis at several fingernails, chronic smooth shiny skin along the bilateral anterior shins Head / Scalp: non-tender Eyes: Externally clear ENT: moist mucous membranes without ulcerations noted, nares clear without blood Cardio: regular rate and rhythm on auscultation without significant murmurs, rubs, or gallops Lungs: clear to auscultation bilaterally Lower Extremities: no edema noted Musculoskeletal: All four limbs examined. Tenderness at the bilateral CMC and 1st MCP joints with positive CMC grind test. No synovitis noted. Normal range of motion in all joints. No dactylitis noted. No pain with pressure at the bilateral medial and lateral epicondyles or the bilateral plantar fascia or Achilles tendon insertion sites. Vascular: palpable radial and dorsalis pedis pulses bilaterally Laboratory Data: - ALT 21 - Creatinine 0.70 - WBC 8.5, Hgb 13.6, Plt 317, ANC 3.4 Radiographic Information: None Microbiology: None Pathology: None Assessment/Plan Duyen Miller is a pleasant 62 y.o. female who presented to the rheumatology department for eosinophilic fasciitis. The patient and I reviewed her evaluation together. She is doing well today although evaluation is confounded by her completing a prednisone taper for her photo-allergic drug reaction. We will discontinue sulfasalazine as she did not think it was providing much benefit. She will continue etanercept. She will continue appropriate calcium and vitamin-D intake and alendronate. We will repeat her bonedensity in about 1 year consider a holiday at that point. We reviewed her vaccination record. We encouraged reduced alcohol use. Follow-up in 3 months. #1 Eosinophilic fasciitis #2 Psoriatic arthritis, HLA-B27 negative (synovitis, tenosynovitis, nail pitting - also suspect enthesitis and dactylitis), high disease activity #3 Bilateral CMC osteoarthritis - Continue etanercept 50 mg weekly - Stop sulfasalazine - CRP, SPEP, and free light chains with next visit #4 Postmenopausal osteoporosis based on low bone density with high FRAX (22.5% Major osteoporotic fracture risk) on alendronate (started 08/2018 per patient) - Continue appropriate calcium (1200 mg daily in diet and supplements combined) and Vitamin D intake (800 IU daily) - Continue alendronate 70 mg by mouth once per week - Calcium with next visit - Repeat DXA 01/2024 - possible bisphosphonate holiday then #5 Alcohol use - Advised continued decreases #6 Immunosuppression: etanercept #7 Medication safety monitoring: etanercept #8 Vaccination Discussion - Etanercept monitoring: CBC with differential every 6 months - Sulfasalazine monitoring: CBC with differential, ALT, creatinine monthly x3 then every 3 months - Influenza: recommended annually, 02/08/2022 - COVID: - Initial series: 06/2020, 07/2020, 03/2021 - Booster: 08/13/2021, bivalent 02/08/2022 - Pneumonia: PPSV23 01/11/2020, PCV20 08/12/2022 - Tetanus: last done in 08/2017 per patient - Shingles: Shingrix twice each dose by 2-6 months, recommended documented in this encounter Plan of Treatment Upcoming Encounters Date Type Department Care Team Description 06/16/2023 11:15 AM MANAGER OF TAX Appointment [facility] [address] [place], [place] [address] Quinn Oh MD [address] [place] [phone] Scheduled Orders Name Type Priority Associated Diagnoses Orde r Schedule DXA Bone Density Spine/Hip Imaging New Routine Osteopenia with high risk of fracture Expected: 01/09/2024 (Approximate), Expires: 01/08/2025 documented as of this encounter Results * C-Reactive Protein (03/13/2023 9:31 AM MANAGER OF TAX) Pathologist [facility] C-Reactive Protein <0.5 0.0 - 0.5 mg/dL 03/13/2023 2:56 PM MANAGER OF TAX [facility] Blood Venipuncture / Unknown 03/13/2023 9:31 AM MANAGER OF TAX 03/13/2023 9:31 AM MANAGER OF TAX Quinn Oh MD LAB_1 [facility] [address] [place] [address], [facility] [phone] * Calcium (03/13/2023 9:31 AM MANAGER OF TAX) [facility] Calcium 9.0 8.4 - 10.4 mg/dL 03/13/2023 2:56 PM MANAGER OF TAX [facility] Blood Venipuncture / Unknown 03/13/2023 9:31 AM MANAGER OF TAX 03/13/2023 9:31 AM MANAGER OF TAX Quinn Oh MD LAB_1 [facility] [address] [place] [address], [facility] [phone] documented in this encounter Visit Diagnoses Diagnosis 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- Primary Psoriatic arthritis (HRC) Psoriatic arthropathy Osteopenia with high risk of fracture Vaccine counseling 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
--- OUTSIDE RECORDS SUMMARY | 2023-04-20 10:09 | XMS_ITS | Encounter Summary ---
Author Name Unknown Organization [facility] Address [address], [place] [address] Care Team Providers Care Director Camp Name Role Phone Found, No Pcp MD Primary Care Provider Unavailab le Encounter Details Date Type Department Care Team Description 09/13/2022 9:30 AM CDT Lab Visit [facility] [address] [place] [address] Psoriatic arthritis (HRC); Medication monitoring [...] Department Care Team Description 06/16/2023 11:15 AM BEEHIVE KILN CHARCOAL BURNER Appointment [facility] [address] [place] [address] Quinn Oh MD [address] [place] [address] documented as of this encounter Procedures Procedure Name Priority Date/Time Associated Diagnosis Comments CBC AND DIFFERENTIAL PANEL Routine 09/13/2022 9:35 AM CDT Psoriatic arthritis (HRC) Medication monitoring encounter CREATININE / GFR Routine 09/13/2022 9:35 AM CDT Psoriatic arthritis (HRC) Medication monitoring encounter COMPLETE BLOOD COUNT-W/DIFF Routine 09/13/2022 9:35 AM CDT Psoriatic arthritis (HRC) Medication monitoring encounter ALT (SGPT) Routine 09/13/2022 9:35 AM CDT Psoriatic arthritis ([facility]) Medication monitoring encounter documented in this encounter Results * Complete Blood Count-W/Diff (09/13/2022 9:35 AM CDT) [facility] WBC 4.7 3.5 - 10.5 x10(9)/L 09/13/2022 9:48 AM [facility] RBC 4.19 3.90 - 5.03 x10(12)/L 09/13/2022 9:48 AM [facility] Hemoglobin 12.5 12.0 - 15.5 g/dL 09/13/2022 9:48 AM [facility] HCT 37.7 34.9 - 44.5 % 09/13/2022 9:48 AM [facility] MCV 90.0 80.0 - 100.0 fL 09/13/2022 9:48 AM [facility] MCH 29.8 27.6 - 33.3 pg 09/13/2022 9:48 AM [facility] MCHC 33.2 31.5 - 35.2 g/dL 09/13/2022 9:48 AM [facility] RDW 13.1 11.9 - 15.5 % 09/13/2022 9:48 AM [facility] Platelets 266 150 - 450 x10(9)/L 09/13/2022 9:48 AM [facility] Neutrophil Absolute 2.3 1.7 - 7.0 10(9)/L 09/13/2022 9:48 AM [facility] Lymphocyte Absolute 1.6 1.0 - 4.8 10(9)/L 09/13/2022 9:48 AM [facility] Monocyte Absolute 0.5 0.2 - 0.9 10(9)/L 09/13/2022 9:48 AM [facility] Eosinophil Absolute 0.4 0.0 - 0.5 10(9)/L 09/13/2022 9:48 AM [facility] Basophil Absolute 0.1 0.0 - 0.3 10(9)/L 09/13/2022 9:48 AM [facility] Immature Granulocyte % 0.2 0.0 - 0.5 % 09/13/2022 9:48 AM CDT [facility] Blood Venipuncture / Unknown 09/13/2022 9:35 AM CDT 09/13/2022 9:38 AM CDT Quinn Oh MD LAB_1 Performing Organization Address [facility]/ZIP Co de Phone Number [facility] [address] [place] [address], [place] [phone] * Creatinine / GFR (monthly) (09/13/2022 9:35 AM CDT) Creatinine 0.70 0.55 - 1.02 mg/dL 09/13/2022 3:13 PM CDT [facility] GFR, Estimated >60 >60 mL/min/1.7 3m2 09/13/2022 3:13 PM CDT [facility] Blood Venipuncture / Unknown 09/13/2022 9:35 AM CDT 09/13/2022 9:38 AM CDT Quinn Oh MD LAB_1 Performing Organization Address [facility] Co de Phone Number [facility] [address] [place] [address], [facility] [phone] * ALT (SGPT) (monthly) (09/13/2022 9:35 AM CDT) ALT (SGPT) 19 <=55 U/L 09/13/2022 3:13 PM CDT [facility] Blood Venipuncture / Unknown 09/13/2022 9:35 AM CDT 09/13/2022 9:38 AM CDT Quinn Oh MD LAB_1 Performing Organization Address [facility]/ZIP Co de Phone Number [facility] [address] [place] [address], [facility] [phone] documented in this encounter Visit Diagnoses Diagnosis Psoriatic arthritis (HRC) Psoriatic arthropathy Medication monitoring encounter Encounter for therapeutic drug monitoring documented in this encounter Care Teams Director Camp Relationship Specialty Start Date End Date Found, No Pcp, [address] [place] [address] PCP - General 11/26/21 documented as of this encounter
--- OUTSIDE RECORDS SUMMARY | 2023-04-20 10:09 | XMS_ITS | Encounter Summary ---
Author Name Unknown Organization [facility] Address [address] [address] Care Team Providers Care Pocketed Spring Assembler Name Role Phone Found, No Pcp Primary Care Provider Unavailab le Encounter Details Date Type Department Care Team Description 08/12/2022 12:10 PM CDT Lab Visit [facility] [address] [place], [place] [phone] Psoriatic arthritis (HRC); snf current use of non-steroidal anti-inflammatories (NSAID); Alcohol use Social History Tobacco Use Types Packs/Day Years [...] Department Care Team Description 06/16/2023 11:15 AM FLIGHT OPERATIONS SPECIALIST Appointment [facility] [address] [place] [address] Quinn Oh MD [address] [place] [address] documented as of this encounter Procedures Procedure Name Priority Date/Time Associated Diagnosis Comments CBC AND DIFFERENTIAL PANEL Routine 08/12/2022 12:22 PM CDT Psoriatic arthritis (HRC) intermediate designer current use of non-steroidal anti-inflammatories (NSAID) CREATININE / GFR Routine 08/12/2022 12:2 2 PM CDT Psoriatic arthritis (HRC) intermediate designer current use of non-steroidal anti-inflammatories (NSAID) COMPLETE BLOOD COUNT-W/DIFF Routine 08/12/2022 12:22 PM CDT Psoriatic arthritis ([facility]) intermediate designer current use of non-steroidal anti-inflammatories (NSAID) C-REACTIVE PROTEIN Routine 08/12/2022 12 :22 PM CDT Psoriatic arthritis ([facility]) snf current use of non-steroidal anti-inflammatories (NSAID) URIC ACID Routine 08/12/2022 12:22 PM CDT Psoriatic arthritis ([facility]) Alcohol use ALT (SGPT) Routine 08/12/2022 12:22 PM CDT Psoriatic arthritis ([facility]) intermediate designer current use of non-steroidal anti-inflammatories (NSAID) BUN Routine 08/12/2022 12:22 PM CDT Psoriatic arthritis ([facility]) snf current use of non-steroidal anti-inflammatories (NSAID) documented in this encounter Results * Complete Blood Count-W/Diff (08/12/2022 12:22 PM CDT) [facility] WBC 5.4 3.5 - 10.5 x10(9)/L 08/12/2022 12:25 PM [facility] RBC 4.62 3.90 - 5.03 x10(12)/L 08/12/2022 12:25 PM [facility] Hemoglobin 13.6 12.0 - 15.5 g/dL 08/12/2022 12:25 PM [facility] HCT 40.7 34.9 - 44.5 % 08/12/2022 12:25 PM [facility] MCV 88.1 80.0 - 100.0 fL 08/12/2022 12:25 PM [facility] MCH 29.4 27.6 - 33.3 pg 08/12/2022 12:25 PM [facility] MCHC 33.4 31.5 - 35.2 g/dL 08/12/2022 12:25 PM [facility] RDW 13.4 11.9 - 15.5 % 08/12/2022 12:25 PM [facility] Platelets 302 150 - 450 x10(9)/L 08/12/2022 12:25 PM [facility] Automated NRBC 0 <=0 /100 WBC 08/12/2022 12:25 PM [facility] Neutrophil Absolute 2.2 1.7 - 7.0 10(9)/L 08/12/2022 12:25 PM [facility] Lymphocyte Absolute 2.4 1.0 - 4.8 10(9)/L 08/12/2022 12:25 PM [facility] Monocyte Absolute 0.5 0.2 - 0.9 10(9)/L 08/12/2022 12:25 PM [facility] Eosinophil Absolute 0.2 0.0 - 0.5 10(9)/L 08/12/2022 12:25 PM [facility] Basophil Absolute 0.1 0.0 - 0.3 10(9)/L 08/12/2022 12:25 PM [facility] Immature Granulocyte % 0.2 0.0 - 0.5 % 08/12/2022 12:25 PM [facility] Blood Venipuncture / Unknown 08/12/2022 12:22 PM CDT 08/12/2022 12:22 PM CDT Quinn Oh MD LAB_1 [facility] [address] [place] [address] [phone] * Uric Acid (08/12/2022 12:22 PM CDT) Uric Acid 3.8 2.6 - 6.0 mg/dL 08/12/2022 4:48 PM [facility] Blood Venipuncture / Unknown 08/12/2022 12:22 PM CDT 08/12/2022 12:22 PM CDT Quinn Oh MD LAB_1 Performing Organization Address [facility] Co de Phone Number [facility] [address] [place] [address], [facility] [phone] * BUN (08/12/2022 12:22 PM CDT) BUN 20 7 - 26 mg/dL 08/12/2022 4:48 PM CDT [facility] Blood Venipuncture / Unknown 08/12/2022 12:22 PM CDT 08/12/2022 12:22 PM CDT Quinn Oh MD LAB_1 Performing Organization Address [facility] Co de Phone Number [facility] [address] [place] [address], [facility] [phone] * C-Reactive Protein (08/12/2022 12:22 PM CDT) C-Reactive Protein <0.5 0.0 - 0.7 mg/dL 08/12/2022 4:48 PM CDT [facility] Blood Venipuncture / Unknown 08/12/2022 12:22 PM CDT 08/12/2022 12:22 PM CDT Quinn Oh MD LAB_1 Performing Organization Address [facility] Co de Phone Number [facility] [address] [place] [address], [facility] [phone] * Creatinine / GFR (08/12/2022 12:22 PM CDT) Creatinine 0.70 0.55 - 1.02 mg/dL 08/12/2022 4:48 PM [facility]T [facility] GFR, Estimated >60 >60 mL/min/1.7 3m2 08/12/2022 4:48 PM CDT [facility] Blood Venipuncture / Unknown 08/12/2022 12:22 PM CDT 08/12/2022 12:22 PM CDT Quinn Oh MD LAB_1 Performing Organization Address [facility]/ZIP Co de Phone Number [facility] [address] [place] [address], [facility] [phone] * ALT (SGPT) (08/12/2022 12:22 PM CDT) ALT (SGPT) 38 <=55 U/L 08/12/2022 4:48 PM CDT [facility] Blood Venipuncture / Unknown 08/12/2022 12:22 PM CDT 08/12/2022 12:22 PM CDT Quinn Oh MD LAB_1 Performing Organization Address [facility] Co de Phone Number [facility] [address] [place] [address], [facility] [phone] documented in this encounter Visit Diagnoses Diagnosis Psoriatic arthritis (HRC) Psoriatic arthropathy intermediate designer current use of non-steroidal anti-inflammatories (NSAID) Encounter for long-term (current) use of non-steroidal anti-inflammatories Alcohol use Other problems related to lifestyle documented in this encounter Care Teams Pocketed Spring Assembler Relationship Specialty Start Date End Date Found, No Pcp, [address] [place] [address] PCP - General 11/26/21 documented as of this encounter
--- OUTSIDE RECORDS SUMMARY | 2023-04-20 10:09 | XMS_ITS | Encounter Summary ---
Author Name Unknown Organization [facility] Address [address] [place] [address] Care Team Providers Care Dishwashing Machine Operator Name Role Phone Found, No Pcp MD Primary Care Provider Unavailab le Encounter Details Date Type Department Care Team Description 05/11/2022 Notes/Orders [facility] Occupational Therapy at [facility] Physical [facility] [address] [place], [place] [phone] Anant Salazar, OTR/L [address] [address] [address] Social History Tobacco Use Types Packs/Day Years Used Date Smoking Tobacco: Never Smokeless Tobacco: Never Alcohol Use Standard Drinks/Week Comments Yes 10 (1 standard drink = 0.6 oz pu re alcohol) Sex and Gender Information Value Date Recorded Sex Assigned at Not on file Gender Identity Not on file Sexual Orientation Not on file documented as of this encounter Progress Notes * Anant Salazar, OTR/L - 05/11/2022 11:59 PM CST Occupational Therapy Discharge Summary Duyen Miller has not attended therapy since last documented visit. There are no further visits scheduled at this time and Duyen is currently considered discharged from therapy. Unable to assess current level of function and goals due to unplanned discharge. OT - Discharge Total Visits: 1 Reason for discharge: Patient has not been consistent with attendance and/or failed to schedule appointments as planned. Primary Therapist: Discharging therapist Please see previous visit documentation of status at last treatment. Anant Salazar, OTR/L P LEADER documented in this encounter Plan of Treatment Upcoming Encounters Date Type Department Care Team Description 06/16/2023 11:15 AM GROUP LEADER Appointment [facility] [address] [place] [address] Quinn Oh MD [address] [place], [place] [phone] documented as of this encounter Visit Diagnoses Not on filedocumented in this encounter Care Teams Dishwashing Machine Operator Relationship Specialty Start Date End Date Found, No Pcp, [address] [place] [address] PCP - General 11/26/21 documented as of this encounter
--- OUTSIDE RECORDS SUMMARY | 2023-04-20 10:09 | XMS_ITS | Encounter Summary ---
Author Name Unknown Organization [facility] Address [address], [place] [address] Care Team Providers Care District Ranger Name Role Phone Found, No Pcp MD Primary Care Provider Unavailab le Reason for Visit * Procedure/Equipment (Routine) - Closed Specialty Diagnoses / Procedures Referred By Mendezac t Referred To Contact Diagnoses Psoriatic arthritis (HRC) Polyarthralgia Pain in both hands Procedures MR Hand Rt W/WO IV Cont Viky Melton PA-C [address] [place] [address] Referral ID Status Reason Start Date Expiration Date Visits Re quested Visits Authorized [id number] Closed 04/18/2022 07/18/2023 1 1 Encounter Details Date Type Department Care Team Description 04/22/2022 9:30 AM FUND ACCOUNTANT Ancillary Procedure [facility] [address] [address] [place] [address] [place] [address] Viky Melton PA-C [address] [place], [place] [phone] Psoriatic arthritis (HRC); Arthralgia, unspecified joint; Pain in both hands Social History Tobacco Use Types Packs/Day Years Used Date Smoking Tobacco: Never Smokeless Tobacco: Never Alcohol Use Standard Drinks/Week Comments Yes 14 (1 standard drink = 0.6 oz pu re alcohol) Cutting down Sex and Gender Information Value Date Recorded Sex Assigned at Not on file Gender Identity Not on file Sexual Orientation Not on file documented as of this encounter Plan of Treatment Upcoming Encounters Date Type Department Care Team Description 06/16/2023 11:15 AM FUND ACCOUNTANT Appointment [facility] [address] [place] [address] Quinn Oh MD [address] [place] [address] documented as of this encounter Procedures Procedure Name Priority Date/Time Associated Diagnosis Comments MR HAND RT W/WO IV CONT Routine 04/22/2022 9:51 AM FUND ACCOUNTANT Psoriatic arthritis (HRC) Arthralgia, unspecified joint Pain in both hands documented in this encounter Results * MR Hand Rt W/WO IV Cont (04/22/2022 9:51 AM FUND ACCOUNTANT) Anatomical Region Laterality Modality Upper Extremity, Hand, Wrist, Skeletal, MSK Righ t Magnetic Resonance 04/22/2022 9:17 AM FUND ACCOUNTANT Impressions 04/22/2022 10:09 AM FUND ACCOUNTANT TECHNIQUE: MRI of the right hand was performed before and following the uncomplicated administration of 7 mL Gadavist intravenously. COMPARISON: Radiographs dated 12/27/2021 FINDINGS: There is fifth MCP joint synovitis. No osteitis or erosions identified. 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 There is associated synovitis of these joints which is likely reactive. There are several scattered intraosseous cysts in the carpal bones and second and third metacarpal heads. There is a metal lunate facet with associated chondromalacia in the lunate. There is mild diffuse flexor tenosynovitis. There is also mild extensor digitorum tenosynovitis. There is no evidence for tendon tear. The visualized muscles and tendons are normal. Visualized soft tissues are unremarkable. IMPRESSION: 1. Fifth MCP joint synovitis. Flexor and extensor tenosynovitis. These findings can be seen with inflammatory arthritis. No osteitis or erosions identified. 2. 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 Narrative Procedure Note Michael Gonzales MD - 04/22/2022 IMPRESSION TECHNIQUE: MRI of the right hand was performed before and following theuncomplicated administration of 7 mL Gadavist intravenously. COMPARISON: Radiographs dated 12/27/2021 FINDINGS: There is fifth MCP joint synovitis. No osteitis or erosionsidentified. 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 Thereis associated synovitis of these joints which is likely reactive. Thereare several scattered intraosseous cysts in the carpal bones and secondand third metacarpal heads. There is a metal lunate facet with associatedchondromalacia in the lunate. There is mild diffuse flexor tenosynovitis.There is also mild extensor digitorum tenosynovitis. There is no evidencefor tendon tear. The visualized muscles and tendons are normal. Visualizedsoft tissues are unremarkable. IMPRESSION: 1. Fifth MCP joint synovitis. Flexor and extensor tenosynovitis. Thesefindings can be seen with inflammatory arthritis. No osteitis or erosionsidentified. 2. 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 Viky Melton PA-C RAD MRI documented in this encounter Visit Diagnoses Diagnosis Psoriatic arthritis (HRC) Psoriatic arthropathy Arthralgia, unspecified joint Pain in both hands documented in this encounter Administered Medications Inactive Administered Medications - up to 3 most recent administrations Medication Order MAR Action Action Date Dose Rate Site gadobutrol (GADAVIST) 1 MMOL/ML injection 7 mL 7 mL, Intravenous, ONCE (NON-SCHEDULED), Starting on Mon04/22/22 at 0925, Until Mon04/22/22 at 0952, For 1 dose Given 04/22/2022 9:52 AM FUND ACCOUNTANT 7 mL sodium chloride 0.9% injection 20 mL 20 mL, Intravenous, ONCE, On Mon04/22/22 at 0945, For 1 dose Given 04/22/2022 9:51 AM FUND ACCOUNTANT 20 mL documented in this encounter Care Teams District Ranger Relationship Specialty Start Date End Date Found, No Pcp, [address] [place] [address] PCP - General 11/26/21 documented as of this encounter
--- OUTSIDE RECORDS SUMMARY | 2023-04-20 10:09 | XMS_ITS | Encounter Summary ---
Author Name [facility] Address [address] [place] [address] Care Team Providers Care Certified Hand Therapist Name Role Phone Found, No Pcp MD Primary Care Provider Unavailab le Reason for Visit * Reason Comments Hand Problem * Therapies (Routine) - New Request Specialty Diagnoses / Procedures Referred By Contalfredo t Referred To Contact Diagnoses Psoriatic arthritis (HRC) Quinn Oh MD [address] [place] [address] Referral ID Status Reason Start Date Expiration Date V isits Requested Visits Authorized [id number] New Request 04/29/2022 04/29/2023 1 1 Encounter Details Date Type Department Care Team Description 05/11/2022 8:15 AM BILLET BED OPERATOR Office Visit [facility] Physical Therapy [address] [address] Anant Salazar, OTR/L [address] [address] [place] [address] Arthritis of carpometacarpal (CMC) joint of both thumbs (Primary Dx); Psoriatic arthritis (HRC) Social History Tobacco Use Types Packs/Day Years [...] Notes * Anant Salazar, OTR/L - 05/11/2022 8:15 AM CST Encounter Date 05/11/2022 Pt [address] [place] Hand Occupational Therapy - Evaluation - Plan of Care Visit Number: 1 [facility] Plan: [facility] / Product Type: Commercial / Initial Certification Period: 05/11/2022 to 07/10/22 Referring Provider: Quinn Oh Referring Diagnosis: Bilateral Thumb CMC DJD Visit Diagnosis: 1. Arthritis of carpometacarpal (CMC) joint of both thumbs 2. Psoriatic arthritis (HRC) Precautions: osteopenia, eosinophilic fasciitis, anxiety Hand Dominance: Right Orders: Evaluate and treat Onset Date: Referral Date: 04/29/2022 SUBJECTIVE Reason for Visit: Patient comes to Hand Occupational Therapy secondary pain in finger joints and thumb joints bilaterally. Patient reports history of pain in hands for years but more pain in hand in the last 6 months.Patient reports increased pain with writing, lifting a glass, using tools like a screwdriver, stapling papers, texting, opening jars, turning a doorknob, holding a paintbrush, holding a book, difficulty holding onto bike handles, vacuuming. Patient states that the evaluation analyst does say she has inflammation in her hand but also regular DJD. Patient also states she has eosinophilic fasciitis thatcould be contributing to her symptoms. Patient Therapy Goals: I would like to have less pain. Past Medical History: Patient has no past medical history on file. 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 Minimal decreased storey abduction bilaterally. Able to make fist with fingers and touch palm with pain in finger joints bilaterally but good fist. STRENGTH: Strength (In pounds): 05/11/2022 Right Left Billing And Quality Technician: 10 25 Lateral Pinch: 10 10 3-Point Pinch: 10 10 EDEMA: mild diffuse swelling in bilateral hands SENSATION: Patient reports that she will wake up sometimes with numbness and tingling. Does have splints that she does not always use. PALPATION: Tender with palpation to all finger and thumb joints bilaterally SPECIAL TESTS: 05/11/2022 Right Left Comments CMC Grind + + Retropulsion + + MP joint instability/laxity + + Shoulder sign + + Ortiz: + = positive; - = negative Clinical Global Impression: Patient rates their overall pain level with activity Date 05/11/2022 Score 8 Outcomes: 05/11/2022 OT - Musculoskeletal - Hand PRWHE (0-100, 0 being best): 60 TODAY'S TREATMENT INTERVENTION: THERAPEUTIC EXERCISES (12 minutes): -Performed and Instructed: The patient was instructed in, performed and provided with written handouts for the following: Digital: tendon gliding and finger abduction and adduction. Thumb: manual release techniques with clip and golf ball, butterfly stretch, retroposition stretch, thumb active abduction, MP flexion and opposition to index finger making an O. MODALITIES (10 minutes with set up): Paraffin applied to involved hand(s) for 15 minutes to prepare tissue for stretch and/or to decrease pain. THERAPEUTIC ACTIVITY (10 minutes): -Therapist provided patient education on the following topics: activity modification, anatomy, biomechanics, diagnosis, ergonomics, joint protection. Focused on joint protection, AE available. Issuedpanel of pearls and help for hands home program. [employer] resource for AE. -Home modalities: patient was instructed in the use of heat/warm water soaks and/or paraffin bath Timed Code Treatment Minutes: 22 minutes Total Treatment Time: 45 minutes ASSESSMENT Therapist Impression/Summary: Patient has bilateral hand pain related to CMC DJD and hand DJD. Patient has inflammation in hand that also could be contributing to her pain. Continue skilled Hand OT for assessment, pt education, orthotic fitting/splinting, and progression of personalized HEP to maximize function and independent with I/ADLS. Occupational Therapy Evaluation Complexity: A Low Complexity Occupational Therapy Evaluation was completed. Occupational profile/history: brief history relating to presenting problem. Assessment: 1-3 performance deficits. Clinical decision making: limited number of treatment options. Significant Impairments: pain, edema, ROM - decreased, and strength - decreased Functional Limitations: Patient reports pain and/or difficulty performing the following tasks/activities: gripping, pinching, lifting a glass, using tools like a screwdriver, stapling papers, texting, opening jars, turning a doorknob, holding a paintbrush, holding a book, difficulty holding onto bike handles, vacuuming Goals/Functional Outcomes: -The patient will be able to lift a glass with minimal to no difficulty in 30 days -The patient will be able to vacuum with minimal to no difficulty in 60 days -The patient will be independent with home program and splint wear and care in 60 days. -The patient will be knowledgeable on joint protection techniques and adaptive equipment available in 60 days Potential Barriers to Goal Achievement or Learning: Rehab prognosis is good to achieved stated goals. Mood, orientation, and behavior were appropriate. Patient was alert and oriented. No apparent barriers to learning. PLAN Planned Intervention/Education: AROM, PROM, joint mobilization, strength, home exercise program, edema control, diagnosis education, soft tissue mobilization, modalities: paraffin bath., splint/orthosis Frequency: 1 x week or every other week Duration: 60 days Discharge Plan: Patient will be discharged from therapy when goals are achieved or patient plateausin progress. Informed Consent: Patient and/or family in agreement with the care plan. Plan for Next Treatment: assess response to treatment, modalities: paraffin, review home exercise program, consider splinting, CMC stabilization exercises, gentle hand strengthening. The internal affairs investigator is completed by the therapist and the referring clinician's electronic signature certifies medical necessity for the plan above. ET BED OPERATOR documented in this encounter Plan of Treatment Upcoming Encounters Date Type Department Care Team Description 06/16/2023 11:15 AM BILLET BED OPERATOR Appointment [facility] [address] [place] [address] Quinn Oh MD [facility] [place] [address] Scheduled Referrals Name Type Priority Associated Diagnoses Orde r Schedule Hand Occupational Therapy Referral Routine Psoriatic arthritis (HRC) Ordered: 04/29/2022 documented as of this encounter Visit Diagnoses Diagnosis Arthritis of carpometacarpal (CMC) joint of both thumbs- Primary Psoriatic arthritis (HRC) Psoriatic arthropathy documented in this encounter Care Teams Certified Hand Therapist Relationship Specialty Start Date End Date Found, No Pcp, [address] [facility] [place] [address] PCP - General 11/26/21 documented as of this encounter
--- OUTSIDE RECORDS SUMMARY | 2023-04-20 10:09 | XMS_ITS | Encounter Summary ---
Author Name Unknown [facility] Address [address] [place] [address] Care Team Providers Care Residential Field Manager Name Role Phone Found, No Pcp MD Primary Care Provider Unavailab le Reason for Visit * Reason Comments RASH Encounter Details Date Type Department Care Team Description 11/01/2022 3:45 PM CDT Office Visit [facility] [address] [place], [place] [address] Viviane Cueto MD [address] [place] [phone] Photoallergic drug eruption (Primary Dx) Social History Tobacco Use Types Packs/Day Years Used Date Smoking Tobacco: Never Smokeless Tobacco: Never Alcohol Use Standard Drinks/Week Comments Yes 10 (1 standard drink = 0.6 oz pu re alcohol) Sex and Gender Information Value Date Recorded Sex Assigned at Not on file Gender Identity Not on file Sexual Orientation Not on file documented as of this encounter Progress Notes * Viviane Cueto MD - 11/01/2022 3:45 PM CDT Chief Complaint Patient presents with RASH Dermatology Problem List Eosinophilic fasciitis symptoms 2018 but diagnosed with a biopsy in [place] in 2019; treated with prednisone, dupilumab(allergic), and most recently Enbrel History of psoriatic arthritis without skin involvement except for history of thickened nails SUBJECTIVE: Duyen Miller is a 62 y.o. female who presents to clinic today for evaluation of vague photo distributed eruption that started October 16 of this year. Patient experienced redness with superimposed erythematous papules that was quite itchy and painful involving the extensor lower arms and extensorforearms extensor knees shins and calves. Her face and chest were spared. Patient had been started on a 2nd course of sulfasalazine August 12 for psoriatic arthritis. Patient states it was very painful to apply sunscreen (causing her to cry) and even the triamcinolone 0.1% cream that had been prescribed as it caused a lot of burning itching, and she eventually hadto stop. The rash is improving with more resolution on the legs and the arms she is maintained on sulfasalazine. She is not sure how helpful it has been for her joint pain or joint swelling. She is due to see her performance test engineer,Dr. Oh,on the 14 of November. Other than this skin eruption in her continue joint discomfort, she is in her usual state of health MEDICATIONS: Reviewed and updated in Epic ALLERGIES: Dupilumab PHYSICAL EXAMINATION: General: Well-appearing female, in no distress, alert and oriented. Area/s examined: Face neck armslegs; see below for pertinent findings. ASSESSMENT AND PLAN: 1. Photoallergic drug eruption Distal extensor arms onto the extensor forearms faint erythematous blanchable patches; extensor knees shins and calves barely perceptible erythematous macules and patches Face neck unremarkable anterior chest chronic background chronic sun changes with erythema and hyperpigmentation I believe this reaction could be related the sulfasalazine and more tense sun exposure. Encouraged her to sun protection with protective clothing. She will remain the sulfasalazine until she follows up with Dr. Oh. Related Medications predniSONE (DELTASONE) 10 MG tablet Take 4 tablets by mouth x4 days; 3 tablets x4 days; 2 tablets x4 days; 1 tablet x4 days then stop FOLLOW UP: Return to clinic p.r.n. based on clinical progress. I have asked him to notify me if notgreatly improved. *This note is created with voice recognition software and may contain typographical errors. documented in this encounter Plan of Treatment Upcoming Encounters Date Type Department Care Team Description 06/16/2023 11:15 AM CRM MARKETING SPECIALIST Appointment [facility] [address] [place] [address] Quinn Oh MD [address] [place] [address] [place] [address] documented as of this encounter Visit Diagnoses Diagnosis Photoallergic drug eruption- Primary Acute dermatitis due to solar radiation documented in this encounter Care Teams Residential Field Manager Relationship Specialty Start Date End Date Found, No Pcp, [address] [place] [address] PCP - General 11/26/21 documented as of this encounter
--- OUTSIDE RECORDS SUMMARY | 2023-04-20 10:09 | XMS_ITS | Encounter Summary ---
Author Name Unknown Organization [facility] Address [address] [place] [address] Care Team Providers Care Slip Operator Name Role Phone Found, No Pcp MD Primary Care Provider Unavailab le Reason for Referral * Therapies (Routine) - New Request Specialty Diagnoses / Procedures Referred By Mariajose gordon Referred To Contact Diagnoses Psoriatic arthritis (HRC) Quinn Oh MD [address] [place] [address] Referral ID Status Reason Start Date Expiration Date V isits Requested Visits Authorized [id number] New Request 04/29/2022 04/29/2023 1 1 Scheduling Instructions Your clinician has recommended an appointment with [facility]. You can quickly make your appointment online at [employer]/[email or web address]. You can also call [phone] for help scheduling your appointment. We suggest you call your health insurance company about your coverage and benefits for this appointment. Question Answer Reason for referral (DX) Thumb arthritis in patient with psoriatic arthritis Appointment urgency as schedule permits Precautions None May use saline for irrigation or cleansing Yes Requested Services Evaluation and Treatment dexamethasone use Yes OPERATOR Reason for Visit * Reason Comments Follow-up Encounter Details Date Type Department Care Team Description 04/29/2022 3:15 PM TUB OPERATOR Office Visit [facility] [address] [place] [address] Quinn Oh MD [address] [place] [address] Psoriatic arthritis (HRC) (Primary Dx); 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; 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); Vaccine counseling; Arthritis of carpometacarpal (CMC) joint of both thumbs; Alcohol use Social History Tobacco Use Types Packs/Day Years Used Date Smoking Tobacco: Never Smokeless Tobacco: Never Alcohol Use Standard Drinks/Week Comments Yes 10 (1 standard drink = 0.6 oz pu re alcohol) Sex and Gender Information Value Date Recorded Sex Assigned at Not on file Gender Identity Not on file Sexual Orientation Not on file documented as of this encounter Patient Instructions * Patient Instructions* Quinn Oh MD - 04/29/2022 3:15 PM TUB OPERATOR - With the decrease in your prednisone your psoriatic arthritis has become more active - Let's try scheduled NSAIDs: naproxen 500 mg twice daily after meals - If this is not effective after at least a month we can look at changing the Enbrel to a differentagent - If this is effective then switch the naproxen to as needed dosing rather than scheduled - Hand therapy - Follow-up in 3 months OPERATOR documented in this encounter Progress Notes * Quinn Oh MD - 04/29/2022 3:15 PM CST RHEUMATOLOGY PROGRESS NOTE Patient: Duyen Miller [...] factor, CCP, HLA-B27 Rheumatologic medications: Current: - Prednisone 5 mg daily - did not start - Etanercept 50 mg weekly Prior: Adalimumab, meloxicam, sulfasalazine, methotrexate History of Present Illness: Since the patient's last visit she met with my colleague GALLITO Melton with increased pain. She underwent an MRI of the right hand which showed synovitis and tenosynovitis. She was provided low-dose prednisone at 5 mg daily. Today the patient notes that she has had a fair amount of pain since coming off the prednisone. This been has in her hands, wrists, elbows, shoulders, chest, and hips. She reports that her hands feelweak due to the pain. She also notes that she is had an increase in nail pitting and a return of whitening of the nails. She notes a prior history of one of the fingers in her hands swelling up like a sausage but nothing recently. She denies other cutaneous psoriasis. She did not start prednisone that was prescribed as she wanted to discuss with us 1st. She has not noticed any return of skin thickening. She denies history of problems with NSAID use or history of GI ulcerations. She shares that she had COVID back in February and was given a course of Paxlovid. She did hold heretanercept during this time. Symptoms resolved relatively quickly. The patient denies other recent changes to their health history such as new allergies, medications, surgeries, hospitalizations, or m edical illnesses. Social History: She is from [place]. She has lived in [place] and [place] and moved back to [place] in July of 2021. 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 She loves [employer]. Pain & RAPID3: In flowsheet if completed by patient. OBJECTIVE Physical Examination: VS: There were no vitals taken for this visit. General: alert, oriented, no acute distress Skin: some pitting and onycholysis on the fingernails, chronic smooth shiny skin along the bilateral anterior shins Head / Scalp: non-tender Eyes: Externally clear ENT: moist mucous membranes without ulcerations noted, nares clear without blood Cardio: regular rate and rhythm on auscultation without significant murmurs, rubs, or gallops Lungs: clear to auscultation bilaterally Lower Extremities: no edema noted Musculoskeletal: All four limbs examined. Bilateral wrist synovitis. Synovitis at the bilateral 5thMCPs and 3rd PIPs. Normal range of motion in all joints. No dactylitis noted. Tender at the bilateral medial and lateral epicondyles, bilateral shoulders, and over the bilateral greater trochanters. No pain with pressure at the bilateral plantar fascia or Achilles tendon insertion sites. Vascular: palpable radial and dorsalis pedis pulses bilaterally Laboratory Data: - ALT 22 - Calcium 9.8 - Creatinine 0.7 - CBC with differential within normal limits - Urinalysis within normal limits - 25 OH vitamin-D 36 - TSH 2.12 - undetectable C-reactive protein - sedimentation rate 11 Radiographic Information: MRI Right hand 04/22/2022: 1. Fifth MCP joint synovitis. Flexor and extensor tenosynovitis. These findings can be seen with inflammatory arthritis. No osteitis or erosions identified. 2. 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 Microbiology: None Pathology: None Assessment/Plan Duyen Miller is a pleasant 61 y.o. female who presented to the rheumatology department for eosinophilic fasciitis. The patient and I reviewed her evaluation together. I shared my impression that her psoriatic arthritis has flared with discontinuation of prednisone. We typically try to avoid long-term prednisone use generally and more specifically in cases of psoriatic arthritis. She has not started the prescribed prednisone and we advised her that we should instead begin use of scheduled NSAIDs for at least 1month. We discussed risks of NSAIDs at length including risk for GI irritation, GI ulceration, hypertension, kidney disease, liver disease, and increased risk for cardiovascular events. A pamphlet on these medications was printed, reviewed with, and provided to the patient. If symptoms improve she can go to as-needed dosing. If symptoms do not improve then we should look at switching her etanercept to a different agent. Wediscussed secukinumab as one option. We discussed risks including cold symptoms, diarrhea, upper respiratory tract infections, injection site reactions, immunosuppression with increased risk for infections, reactivation of latent tuberculosis, and new or worsening inflammatory bowel disease (Crohn's disease or ulcerative colitis). A pamphlet on this medication was printed, reviewed with, and provided to the patient. We also recommended that she meet with our hand therapy team for her bilateral CMC osteoarthritis. We reviewed her vaccination record and made several recommendations. We congratulated her on the recent updates. #1 Eosinophilic fasciitis #2 Psoriatic arthritis, HLA-B27 negative (synovitis, tenosynovitis, nail pitting - also suspect enthesitis and dactylitis) #3 Bilateral CMC osteoarthritis - Discontinue prednisone - Start naproxen 500 mg twice daily after meals - Etanercept 50 mg weekly - Hand therapy #4 Clinical osteoporosis based on low bone density with high FRAX (22.5% Major osteoporotic fracture risk) on alendronate (started 08/2018 per patient) #5 Chronic systemic corticosteroids - finished - Continue appropriate calcium (1200 mg daily in diet and supplements combined) and Vitamin D intake (600-800 IU daily) - Continue alendronate 70 mg by mouth once per week - Repeat DXA in 2023 - possible bisphosphonate holiday then #6 Alcohol use - congratulated her on reduction, advised continued decreases #7 Immunosuppression: etanercept #8 Medication toxicity monitoring: etanercept #9 Vaccination Discussion - Etanercept monitoring: CBC with differential every 6 months - Influenza: recommended annually, 02/08/2022 - COVID: - Initial series: 06/2020, 07/2020, 03/2021 - Booster: 08/13/2021, bivalent 02/08/2022 - Pneumonia: PPSV23 01/11/2020, PCV20 recommended - Tetanus: last done in 08/2017 per patient - Shingles: Shingrix twice each dose by 2-6 months, recommended OPERATOR documented in this encounter Plan of Treatment Upcoming Encounters Date Type Department Care Team Description 06/16/2023 11:15 AM TUB OPERATOR Appointment [facility] [address] [place] [address] Quinn Oh MD [address] [place] [id number] Scheduled Referrals Name Type Priority Associated Diagnoses Orde r Schedule Hand Occupational Therapy Referral Routine Psoriatic arthritis (HRC) Ordered: 04/29/2022 documented as of this encounter Visit Diagnoses Diagnosis Psoriatic arthritis (HRC)- Primary Psoriatic arthropathy 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
--- OUTSIDE RECORDS SUMMARY | 2023-04-20 10:09 | XMS_ITS | Encounter Summary ---
Author Name Unknown Organization [facility] Address [address], [place] [address] Care Team Providers Care Qa Tester Name Role Phone Found, No Pcp MD Primary Care Provider Unavailab le Reason for Visit * Reason Onset Date Comments Refill 05/11/2022 Encounter Details Date Type Department Care Team Description 05/11/2022 Refill [facility] [address] [place], [place] [id number] Quinn Oh MD [facility] [place], [place] [id number] Refill Social History Tobacco Use Types Packs/Day Years Used Date Smoking Tobacco: Never Smokeless Tobacco: Never Alcohol Use Standard Drinks/Week Comments Yes 10 (1 standard drink = 0.6 oz pu re alcohol) Sex and Gender Information Value Date Recorded Sex Assigned at Not on file Gender Identity Not on file Sexual Orientation Not on file documented as of this encounter Nursing Notes * Clemencia Kahn RN - 05/11/2022 9:14 AM CST etanercept (ENBREL SURECLICK) 50 MG/ML pen injection 4 mL 11 01/05/2022 Sig: Inject 50 mg subcutaneously once every week. Indications: Psoriasis associated with Arthritis,L40.50 Route: Subcutaneous Class: E-Prescribing Order #: [id number] Refill too soon, denied. APHONE OPERATOR documented in this encounter Plan of Treatment Upcoming Encounters Date Type Department Care Team Description 06/16/2023 11:15 AM DICTAPHONE OPERATOR Appointment [facility] [address] [place] [address] Quinn Oh MD [address] [place], [place] [id number] documented as of this encounter Visit Diagnoses Not on filedocumented in this encounter Care Teams Qa Tester Relationship Specialty Start Date End Date Found, No Pcp, [address] [place] [address] PCP - General 11/26/21 documented as of this encounter
--- OUTSIDE RECORDS SUMMARY | 2023-04-20 10:09 | XMS_ITS | Encounter Summary ---
Author Name Unknown Organization [facility] Address [address], [place] [address] Care Team Providers Care Hot Wort Settler Name Role Phone Found, No Pcp Primary Care Provider Unavailab le Encounter Details Date Type Department Care Team Description 04/27/2022 Notes/Orders [place] [facility] [address] [place] [address]. [place], [place] [address] Viky Melton PA-C [address] [place], [place] [address] Social History Tobacco Use Types Packs/Day Years [...] Department Care Team Description 06/16/2023 11:15 AM PLANT MAINTENANCE MECHANIC Appointment [facility] [address] [place] [address] Quinn Oh MD [address] [place], [place] [phone] documented as of this encounter Visit Diagnoses Not on filedocumented in this encounter Care Teams Hot Wort Settler Relationship Specialty Start Date End Date Found, No Pcp, [address] [place] [address] PCP - General 11/26/21 documented as of this encounter
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
--- OUTSIDE RECORDS SUMMARY | 2023-04-20 10:09 | XMS_ITS | Encounter Summary ---
Author Name Unknown Organization [facility] Address [address], [place] [address] Care Team Providers Care Aerospace Engineer Officer Armament Name Role Phone Found, No Pcp MD Primary Care Provider Unavailab le Reason for Visit * Reason Comments Refill Encounter Details Date Type Department Care Team Description 10/19/2022 Refill [facility] [address] [place] [address] Quinn Oh MD [address] [place] [address] Refill Social History Tobacco Use Types Packs/Day [...] Nursing Notes * Clemencia Kahn RN - 10/19/2022 9:26 AM CDT Provider reached out to patient 10/13 regarding possible dose change, message was read. Denying this request as provider has suggested an increase but is waiting to hear back from patient. documented in this encounter Plan of Treatment Upcoming Encounters Date Type Department Care Team Description 06/16/2023 11:15 AM FURNACE FILLER Appointment [facility] [address] [place] [address] Quinn Oh MD [address] [place], [place] [address] documented as of this encounter Visit Diagnoses Diagnosis Psoriatic arthritis (HRC) Psoriatic arthropathy documented in this encounter Care Teams Aerospace Engineer Officer Armament Relationship Specialty Start Date End Date Found, No Pcp, [address] [place] [address] PCP - General 11/26/21 documented as of this encounter
--- OUTSIDE RECORDS SUMMARY | 2023-04-20 10:09 | XMS_ITS | Encounter Summary ---
Author Name Unknown Organization [facility] Address [address] [address] Care Team Providers Care Outside Sales Consultant Name Role Phone Found, No Pcp MD Primary Care Provider Unavailab le Reason for Visit * Reason Comments Refill Encounter Details Date Type Department Care Team Description 11/03/2022 Refill [facility] [address] [place], [place] [address] Quinn Oh MD [address] [place] [id number] Refill Social History Tobacco Use Types Packs/Day [...] Nursing Notes * Clemencia Kahn RN - 11/03/2022 12:11 PM CDT Called patient and relayed message. Nothing further needed at this time. * Quinn Oh MD - 11/03/2022 11:52 AM CDT Let's stop the sulfasalazine for the time being. We have follow-up soon (11/16) and can discuss further then. * Clemencia Kahn RN - 11/03/2022 10:45 AM CDT Patient saw dermatology yesterday. Derm suggested to go off Sulfasalazine related to skin issues asper her message 10/13/22. Patient states she doesn't feel she is getting much relief if any from her arthritis sx with the sulfasalazine. Also, her derm has put her on a Prednisone taper related to theskin reaction. Patient does not know if she should continue with the Sulfasalazine or not. Routing to provider to please advise. documented in this encounter Plan of Treatment Upcoming Encounters Date Type Department Care Team Description 06/16/2023 11:15 AM MACHINE ASSEMBLER Appointment [facility] [address] [place], [place] [address] Quinn Oh MD [facility] [place] [address] documented as of this encounter Visit Diagnoses Diagnosis Psoriatic arthritis (HRC) Psoriatic arthropathy documented in this encounter Care Teams Outside Sales Consultant Relationship Specialty Start Date End Date Found, No PcpMD [address] [place] [address] PCP - General 11/26/21 documented as of this encounter
--- OUTSIDE RECORDS SUMMARY | 2023-04-20 10:09 | XMS_ITS | Encounter Summary ---
Author Name Unknown Organization [facility] Address [address] [address] Care Team Providers Care Aerospace Engineer Officer Armament Name Role Phone Found, No Pcp MD Primary Care Provider Unavailab le Encounter Details Date Type Department Care Team Description 10/13/2022 9:30 AM CDT Lab Visit [facility] [address] [place] [address] Psoriatic arthritis (HRC); Medication monitoring [...] Department Care Team Description 06/16/2023 11:15 AM TUBE DRAWER Appointment [facility] [address] [place] [address] Quinn Oh MD [address] [place] [address] documented as of this encounter Procedures Procedure Name Priority Date/Time Associated Diagnosis Comments CBC AND DIFFERENTIAL PANEL Routine 10/13/2022 9:27 AM CDT Psoriatic arthritis (HRC) Medication monitoring encounter CREATININE / GFR Routine 10/13/2022 9:27 AM CDT Psoriatic arthritis (HRC) Medication monitoring encounter COMPLETE BLOOD COUNT-W/DIFF Routine 10/13/2022 9:27 AM CDT Psoriatic arthritis (HR) Medication monitoring encounter ALT (SGPT) Routine 10/13/2022 9:27 AM CDT Psoriatic arthritis ([facility]) Medication monitoring encounter documented in this encounter Results * Complete Blood Count-W/Diff (10/13/2022 9:27 AM CDT) [facility] WBC 4.1 3.5 - 10.5 x10(9)/L 10/13/2022 9:29 AM T [facility] RBC 4.40 3.90 - 5.03 x10(12)/L 10/13/2022 9:29 AM [facility] Hemoglobin 12.9 12.0 - 15.5 g/dL 10/13/2022 9:29 AM [facility] HCT 39.5 34.9 - 44.5 % 10/13/2022 9:29 AM [facility] MCV 89.8 80.0 - 100.0 fL 10/13/2022 9:29 AM [facility] MCH 29.3 27.6 - 33.3 pg 10/13/2022 9:29 AM [facility] MCHC 32.7 31.5 - 35.2 g/dL 10/13/2022 9:29 AM [facility] RDW 13.0 11.9 - 15.5 % 10/13/2022 9:29 AM [facility] Platelets 260 150 - 450 x10(9)/L 10/13/2022 9:29 AM [facility] Neutrophil Absolute 1.8 1.7 - 7.0 10(9)/L 10/13/2022 9:29 AM [facility] Lymphocyte Absolute 1.5 1.0 - 4.8 10(9)/L 10/13/2022 9:29 AM [facility] Monocyte Absolute 0.5 0.2 - 0.9 10(9)/L 10/13/2022 9:29 AM [facility] Eosinophil Absolute 0.3 0.0 - 0.5 10(9)/L 10/13/2022 9:29 AM [facility] Basophil Absolute 0.0 0.0 - 0.3 10(9)/L 10/13/2022 9:29 AM CDT [facility] Immature Granulocyte % 0.2 0.0 - 0.5 % 10/13/2022 9:29 AM CDT [facility] Blood Venipuncture / Unknown 10/13/2022 9:27 AM CDT 10/13/2022 9:27 AM CDT Quinn Oh MD LAB_1 Performing Organization Address [facility]/ZIP Co de Phone Number [facility] [address] [place] [address], [place] [phone] * Creatinine / GFR (monthly) (10/13/2022 9:27 AM CDT) Creatinine 0.70 0.55 - 1.02 mg/dL 10/13/2022 1:06 PM [facility] GFR, Estimated >60 >60 mL/min/1.7 3m2 10/13/2022 1:06 PM CDT [facility] Blood Venipuncture / Unknown 10/13/2022 9:27 AM CDT 10/13/2022 9:27 AM CDT Quinn Oh MD LAB_1 Performing Organization Address [facility] Co de Phone Number [facility] [address] [place] [address], [facility] [phone] * ALT (SGPT) (monthly) (10/13/2022 9:27 AM CDT) ALT (SGPT) 16 <=55 U/L 10/13/2022 1:06 PM CDT [facility] Blood Venipuncture / Unknown 10/13/2022 9:27 AM CDT 10/13/2022 9:27 AM CDT Quinn Oh MD LAB_1 Performing Organization Address [facility]/ZIP Co de Phone Number [facility] [address] [place] [address], [facility] [phone] documented in this encounter Visit Diagnoses Diagnosis Psoriatic arthritis (HRC) Psoriatic arthropathy Medication monitoring encounter Encounter for therapeutic drug monitoring documented in this encounter Care Teams Aerospace Engineer Officer Armament Relationship Specialty Start Date End Date Found, No Pcp, [address] [place] [address] PCP - General 11/26/21 documented as of this encounter
--- OUTSIDE RECORDS SUMMARY | 2023-04-20 10:09 | XMS_ITS | Encounter Summary ---
Author Name Unknown Organization [facility] Address [address] [place] [address] Care Team Providers Care Postdoctoral Fellow Name Role Phone Found, No Pcp MD Primary Care Provider Unavailab le Reason for Visit * Reason Comments Skin Check FBE, has history of eosinophilic fascitis and wants lower legs looked at. Has concerning spots on right lower abdomen and wants to talk about nail problem. Had previous biopsy on back of neck and site still itches. * Consult/Transfer Care (Routine) - Closed Specialty Diagnoses / Procedures Referred By Contalfredo t Referred To Contact Dermatology Diagnoses Diffuse (eosinophilic) fasciitis Arthropathic psoriasis, unspecified eosinophilic fasciitis psoriatic arthritis Celina Lopez MD [address] [place] [address] [place] [address] [place] [id number] Referral ID Status Reason Start Date Expiration Date Visits Re quested Visits Authorized [id number] Closed 09/16/2021 12/16/2022 1 1 Encounter Details Date Type Department Care Team Description 06/07/2022 9:45 AM VEHICLE FARE COLLECTOR Office Visit [facility] [address] [place] [address] Viviane Cueto MD [address] [place], [place] [phone] Neoplasm of skin (Primary Dx); Multiple benign nevi; Lentigines; Seborrheic keratoses; Salter hemangioma; Pruritus; Hyperpigmentation; Dilated pore of Melecio Social History Tobacco Use Types Packs/Day Years [...] Progress Notes * Viviane Cueto MD - 06/07/2022 9:45 AM CST Images from the original note were not included. Name: Duyen Miller : 1960 Encounter Date: 06/07/2022 Dermatology Problem List History of morphea Eosinophilic fasciitis symptoms 2018 but diagnosed with a biopsy in [place] in 2019; treated with prednisone, dupilumab(allergic), and most recently Enbrel History of psoriatic arthritis without skin involvement except for history of thickened nails SUBJECTIVE: Duyen Miller is a 61 y.o. female here for a skin check. Patient is currently on Enbrel for eosinophilic fasciitis. No personal or family history of skin cancer. Patient states that she is a spot on upper back that was biopsied 2018 in the areas still itches hedoes scratch at it occasionally. Patient is followed by Dr. Oh in Rheumatology [Dr. Oh's note from 11/26/2021-excellent summary of course before presenting nat [facility]] Patient is a mole that she is had for number of years on her right lateral abdomen. She states it for 3 4 months it was intensely itchy and then the color change to be customer experience intern at the periphery. MEDICATIONS: Reviewed in Epic Allergies Allergen Reactions Dupilumab Hives PHYSICAL EXAM: She is a pleasant, alert and oriented female in no apparent distress. Examination of scalp, head, neck, R and L upper extremities, chest, back, abdomen, breasts, buttocks, and R and L lower extremities was performed with pertinent findings below. ASSESSMENT AND PLAN: Neoplasm of skin (HRC) Right Abdomen (side) - Lower 7 x 4 mm brown macule with customer experience intern rim Skin Biopsy (No CPT) Type of biopsy: punch Punch size: 8 mm Suture size: 4-0 Suture type: nylon Suture removal (days): 14 Hemostasis achieved with: suture Outcome: patient tolerated procedure well Post-procedure details: sterile dressing applied and wound care instructions given Dressing type: petrolatum and pressure dressing Specimen 1 - Surgical Path, Dermatology Clinical Impression: r/o atypical nevus Pruritus Right upper back linear well-healed scar with surrounding poorly defined hyperpigmentation, minimally lichenified Related Medications betamethasone dipropionate (DIPROLENE-AF) 0.05 % AUGMENTED cream Apply topically two times daily as needed. Apply thin coat to the itchy area in the upper back twice a day as needed In addition my handout on vxts-lru-hjdxoad anti-itch measures was explained provided. Seborrheic keratoses-chronic. Reassurance given. Scattered well demarcated, yellow/light brown/dark brown, dry and/waxy, stuck on papules/plaque Benign; reassurance. Capillary hemangiomata-chronic. Scattered pink/purple vascular macules/papules noted throughout the exam. Benign; reassurance. Solar lentigines-chronic. Light brown macules in sun-exposed areas. Benign; reassurance. Benign appearing nevi 1-8 mm symmetric, regularly bordered, uniformly colored brown/pink flesh colored macules and papules noted throughout the exam. She will monitor these. Hyperpigmentation-likely burned-out areas of morphea/eosinophilic fasciitis Upper back shins very faint light brown patches Dilated pore Right nasal wall of the junction of the cheek is a dilated pore with surrounding normal skin Sun protection measures were recommended as well as monthly self skin checks. FOLLOW UP: Return to clinic 1 year, sooner if concerns. CLE FARE COLLECTOR documented in this encounter Plan of Treatment Upcoming Encounters Date Type Department Care Team Description 06/16/2023 11:15 AM VEHICLE FARE COLLECTOR Appointment [facility] [address] [place], [place] [phone] Quinn Oh MD [address] [place] [phone] documented as of this encounter Procedures Procedure Name Priority Date/Time Associated Diagnosis Comments SKIN BIOPSY Routine 06/07/2022 10:02 AM VEHICLE FARE COLLECTOR Neoplasm of skin SURGICAL PATHOLOGY, DERMATOLOGY Routine 06/07/2022 10:02 AM VEHICLE FARE COLLECTOR Neoplasm of skin documented in this encounter Results * Skin Biopsy (No CPT) (06/07/2022 10:02 AM VEHICLE FARE COLLECTOR) Narrative EXTERNAL RESULTS - 06/07/2022 10:02 AM VEHICLE FARE COLLECTOR Type of biopsy: punch ?? Punch size: ??8 mm Suture size: ??4-0 Suture type: nylon ?? Suture removal (days): ??14 Hemostasis achieved with: suture ?? Outcome: patient tolerated procedure well ?? Post-procedure details: sterile dressing applied and wound care instructions given ?? Dressing type: petrolatum and pressure dressing ?? Viviane Cueto MD DERM PROCEDURE ORDER ARIELLE EXTERNAL RESULTS * Surgical Path, Dermatology (06/07/2022 10:02 AM VEHICLE FARE COLLECTOR) Case Report Surgical Pathology Report ? Case: [id number] ? Authorizing Provider: ??Viviane Cueto MD ? Collected: ? 06/07/2022 1002 ? Ordering Location: ? [facility] ? Received: ?06/08/2022 0800 ? Pathologist: ? Darrion Soto MD ? Specimen: ?Skin, Right Abdomen (side) - Lower ? 06/14/2022 2:14 PM [facility] [address] DERMATOLOGY FINAL DIAGNOSIS A. Skin, Right Abdomen (side) - Lower, punch: - Benign compound melanocytic nevus. 06/14/2022 2:14 PM [facility] [address] DERMATOLOGY Clinical Information Clinical Impression: r/o atypical nevus 06/14/2022 2:14 PM [facility] [address] DERMATOLOGY Microscopic Description Microscopic examination is performed. 06/14/2022 2:14 PM [facility] [address] DERMATOLOGY Special Stains A portion of the technical staining [place] [address]. The professional interpretation was performed at [facility]. 06/14/2022 2:14 PM [facility] [address] DERMATOLOGY Gross Description A: Received in formalin, labeled with the patient's name and Skin, Right Abdomen (side) - Lower is a 8 x 8 x 5 mm punch biopsy of skin. The specimen is marked with blue ink, bisected, and submitted entirely in one cassette. TV 06/14/2022 2:14 PM [facility] [address] DERMATOLOGY Embedded Images 06/14/2022 2:14 PM [facility] [address] DERMATOLOGY Skin (Skin) 06/07/2022 10:0 2 AM VEHICLE FARE COLLECTOR 06/08/2022 8:00 AM VEHICLE FARE COLLECTOR Comment:Clinical Impression: r/o atypical nevus Viviane Cueto MD LAB PATHOLOGY [facility] [address] [place] [address] documented in this encounter Visit Diagnoses Diagnosis Neoplasm of skin (HRC)- Primary Neoplasm of unspecified nature of bone, soft tissue, and skin Multiple benign nevi Benign neoplasm of skin, site unspecified Lentigines Other dyschromia Seborrheic keratoses Salter hemangioma Nevus, non-neoplastic Pruritus Unspecified pruritic disorder Hyperpigmentation Dilated pore of Melecio documented in this encounter Care Teams Postdoctoral Fellow Relationship Specialty Start Date End Date Found, No Pcp, [address] [place] [address] PCP - General 11/26/21 documented as of this encounter
--- OUTSIDE RECORDS SUMMARY | 2023-04-20 10:09 | XMS_ITS | Encounter Summary ---
Author Name Unknown Organization [facility] Address [address], [place] [address] Care Team Providers Care Footwear Stitcher Name Role Phone Found, No Pcp MD Primary Care Provider Unavailab le Reason for Visit * Reason Comments Shoulder Problem * Therapies (Routine) - New Request Specialty Diagnoses / Procedures Referred By Mariajose t Referred To Contact Diagnoses Chronic pain of both shoulders Quinn Oh MD [address] [place] [address] Referral ID Status Reason Start Date Expiration Date V isits Requested Visits Authorized [id number] New Request 08/12/2022 08/12/2023 1 1 Encounter Details Date Type Department Care Team Description 09/20/2022 2:45 PM CDT Therapy [facility] [address] [phone] Darline Lozano, PT [address] [place], [place] [phone] Chronic pain of both shoulders (Primary Dx) Social History Tobacco Use Types [...] as of this encounter Progress Notes * Darline Lozano, PT - 09/20/2022 2:45 PM CDT [facility] Physical Therapy - Shoulder Evaluation/Plan of Care Initial Certification Period: 09/20/2022 to 12/19/22 Referring Provider: Quinn Oh Visit Diagnosis: 1. Chronic pain of both shoulders Precautions: none Orders: Evaluate & treat Onset/Referral Date: onset 4-5 months ago, referral 08/12/22 SUBJECTIVE Reason for Visit: She has been here before for her hands, but wasn't a good pt. She promises she will be better with her shoulders because they are killing her. The shoulders have been killing her for 4-5 months now, can't sleep, just miserable. Just sitting here they just ache. Denies any recent changes that could contribute. Doctor just upped her meds because she was tolerating the basic dose well. Was on this med before but wonders if she stopped because it made her nauseas. Doesn't do any regular HEP, walks sometimes, sometimes does computer work, does things in her new house (1 year old), she is retired. Patient Therapy Goals: Resume previous level of activity symptom free. Denies any headaches. Past Medical History: Patient has no past medical history on file. Recently Experienced (Red Flags): None Previous Treatment: None Benefited from previous treatment: not applicable Pain Details: Current pain intensity level: 7/10 Pain location: lateral shoulders R>L (R handed) Sleep interruptions: Yes: multiple times per night., Difficulty getting comfortable in order to sleep. Pain quality: Aching and Tightness Aggravating factors: Sleep (variable), Dressing/Grooming, Carrying, Lifting, Overhead activities, Household activities, and Yardwork Relieving factors: Changing positions and Restriction of activity Work/Leisure/Sport: Retired, lives with spouse. Moved here a year ago from [place]. Patient History: High Complexity: 3 or more personal factors and/or comorbidities that impact plan of care: Eosinophilic fasciitis and psoriatic arthritis Other History: low bone density, chronic systemic corticosteroid use, anxiety, panic attacks OBJECTIVE Observation: forward head, rounded shoulders, scapular winging, and thoracic kyphosis increased Screening: Thoracic: hypomobile PA ROM: Right Shoulder AROM Flexion: 146 Abduction: 113 External rotation: 65 Internal rotation: 60 PROM WNL all planes Left Shoulder AROM Flexion: 162 Abduction: 156 External rotation: 80 Internal rotation: 65 PROM WNL all planes Strength: Left Shoulder Flexion: 4/5 Extension: 5/5 External rotation: 4-/5 Internal rotation: 5/5 Abduction: 4/5 Right Shoulder Flexion: 4-/5 Extension: 5/5 External rotation: 3+/5 Internal rotation: 5/5 Abduction: 4-/5 Neurological: Dermatomes: WNL Flexibility: Upper traps: Restricted, Subscapularis: Restricted, Pectoralis major: Restricted, and Pectoralis minor: Restricted Joint mobility: GH: WNL, Pain reproduction Palpation: Tenderness with palpation to: Bilateral: Supraspinatus, Subscapularis, Thoracic paraspinals, and subacromial bursa R>L Special Tests: Swift Cheng for impingement: Negative Painful Arc Sign for impingement: Positive ER Strength for impingement: Positive Neers Test for impingement: Positive Functional tests: Hands behind head restricted/painful. Hands behind back restricted/painful. Hands on opposite shoulders restricted/painful. PT - Musculoskeletal - Shoulder QuickDASH (0-100, 0 being best): 64 Clinical Examination: Moderate Complexity: Addressed 3 elements from body structures and functions (see above), and/or functional limitations as noted below. Today's Intervention: Physical Therapy Evaluation was completed and the patient was educated on the condition, planned therapy intervention and expectations from treatment. Self care mangement: 8min -discussed proper diet and hydration, consider anti-inflammatory diet and limit caffeine, alcohol, etc. -Proper posture and body mechanics Therapeutic exercise x 15 minutes: The patient was guided through a home exercise program, including verbal and tactile cues when appropriate to facilitate good performance and targeted intervention.The purpose and intent of each exercise was explained to the patient, as well as, how to follow thegiven exercise prescription. Access Code: [email or web address] URL: [email or web address] Date: 09/20/2022 Prepared by: Darline Lozano Program Notes Ice shoulders 10-15min 2x/day.Research anti-inflammatory diets, or alkaline diets. Exercises - Prone Scapular Retraction - 5-7 x weekly - 1-2 sets - 10-20 reps - Prone Scapular Slide with Shoulder Extension - 5-7 x weekly - 3 sets - 10 reps - Supine Shoulder Flexion Extension AAROM with Dowel - 5-7 x weekly - 2-3 sets - 10 reps - Sidelying Shoulder ER with Towel and Dumbbell - 5-7 x weekly - 1-2 sets - 20 reps - Seated Scapular Retraction - 3 x daily - 7 x weekly - 10-20 reps Timed Code Treatment Minutes: 23 Total Treatment Minutes: 45 ASSESSMENT Therapist Impression/Summary: Pt is a 62yo female with R>L shoulder pain for ~5months of insidious onset. Pt has h/o autoimmune dysfunction, impaired posture with significant weakness of RTC mm leading to impaired mechanics and pain. Pt will benefit from PT to address above impairments, improve pain and functional mobility to PLOF. PT Clinical Presentation: Moderate Complexity: Evolving Clinical Presentation with changing clinical characteristics Clinical Decision Making: Moderate Complexity Recommendations/Equipment: No additional recommendations at this time Significant Impairments: Pain, Muscle tightness/decreased flexibility, Muscle weakness, ROM Limitation, Proprioception deficits, Postural restrictions Functional Limitations: poor body mechanics, difficulty sleeping, difficulty dressing, difficulty with household tasks, and difficulty with sports/leisure activities Goals/Functional Outcomes: HEP/Independent Management: Demonstrate independence with HEP and self- management following each treatment session ADL's: Resume previous sleep pattern without awakening due to symptoms in 12 weeks. Perform home management tasks with ease in 12 weeks. [place] hair and face in 12 weeks. Dress, including don and doff shirt and pants with ease in 12 weeks. Barriers to Goal Achievement or Learning: none Prognosis: good PLAN Planned Intervention/Education: ADL/Self Management, Aquatic therapy, Education, Electrical Stimulation, Gait training, Heat/ice, Iontophoresis with Dexamethasone Sodium Phosphate 4 mg/mL solution prn with procedure to reduce inflammation. Deliver 1.0mL-1.5mL through iontophoresis patch to affectedarea., Manual Therapy, Neuromuscular Re-education, TENS application/self treatment, Therapeutic Activities, Therapeutic Exercise, Vasopneumatic compression Frequency: 1 x week, 2 x week Duration: 90 days Discharge Plan: Patient will be discharge from therapy when goals are achieved or patient plateaus in progress. Informed Consent: Patient and/or family in agreement with the care plan. Plan for Next Treatment: review and progress shoulder and scap strengthening The retail merchandising specialist is completed by the therapist and the referring clinician's electronic signature certifies medical necessity for the plan above. documented in this encounter Plan of Treatment Upcoming Encounters Date Type Department Care Team Description 06/16/2023 11:15 AM CUT OFF SAW TENDER METAL Appointment [facility] [address] [place] [address] Quinn Oh MD [address] [place], [place] [phone] Scheduled Referrals Name Type Priority Associated Diagnoses Orde r Schedule Physical Therapy Referral Routine Chronic pain of both shoulders Ordered: 08/12/2022 documented as of this encounter Visit Diagnoses Diagnosis Chronic pain of both shoulders- Primary Pain in joint, shoulder region documented in this encounter Care Teams Footwear Stitcher Relationship Specialty Start Date End Date Found, No Pcp, [address] [place] [address] PCP - General 11/26/21 documented as of this encounter
== END 2023-04-15 11:20 | disposition home or self-care (01) ==
LOC: NFLDREF 04-20 10:05
PROVIDERS: PCP Internal Medicine; Referring Provider Internal Medicine; Visit Provider Family Medicine
DX: K59.1 Functional diarrhea (principal)
CPT/HCPCS: 87045; 87046; 87177; 87209; 87427; 87493; 87505

== ENCOUNTER 2024-01-11 09:13 | Outpatient (CLI) | payer OTHER, SELFPAY ==
--- OUTSIDE RECORDS SUMMARY | 2024-01-12 09:14 | XMS_ITS | Clinical Summary ---
[facility] Organization [facility] Address [address] [place] [address] Care Team Providers Care Hospice Bereavement Coordinator Name Role Phone Found, No Pcp MD Primary Care Provider Unavailab le Source Comments You are receiving this document as you are listed as the primary care provider,follow-up provider, or the patient has been referred to you for consultation.This is in compliance with the Medicare and[facility] EHR Incentive Program,which states Providers who transition their patient to another setting of careor provider of care or refers their patient to another provider of care shouldprovide summary care record for each transition of care or referral. [facility] Allergies Active Allergy Reactions Criticality Noted Date Comments Dupilumab Hives High 11/26/2021 Medications Medication Sig Dispensed Refills Start Date End Date Status alendronate (FOSAMAX) 70 MG tablet Take 1 Tablet (70 mg) by mouth once every week. 09/30/2021 Active gabapentin (NEURONTIN) 600 MG tablet Take 1 Tablet (600 mg) by mouth three times a day. Pt takes 2 tabs daily 06/17/2021 Active oxyCODONE-acetaminophe n (PERCOCET) 5-325 MG tablet Take 1 Tablet by mouth as needed. 09/02/2021 Active PARoxetine (PAXIL) 40 MG tablet Take 1 Tablet (40 mg) by mouth daily. 11/25/2021 Active valACYclovir (VALTREX) 500 MG tablet Take 1 Tablet (500 mg) by mouth daily. 09/16/2021 Active betamethasone dipropionate (DIPROLENE-AF) 0.05 % AUGMENTED creamIndications:Pruri tus Apply topically two times daily as needed. Apply thin coat to the itchy area in the upper back twice a day as needed 60 g 1 06/07/2022 Active busPIRone (BUSPAR) 10 MG tablet Take 2 Tablets (20 mg) by mouth two times a day. 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 11/26 Immunosuppression due to drug therapy 11/26/2021 Immunizations Name Administration Dates Next Due Influenza IIV4 (Quadrivalent) 0.5mL (51984) 1006/2022,02/08/2022,01/22/2021 Moderna COVID-19 12+ 01/15/2023 Moderna Monovalent 12+ 08/13/2021 PCV20 (Fogdfze48) 08/12/2022 PPSV23 (Pneumovax) 01/11/2020 Pfizer Bivalent 12+ 02/08/2022 Pfizer Monovalent 12+ Purple Top 03/20/2021,07/09,06/27/2020 Zoster RZV (Shingrix) 08/04/2023 Family History Medical History Relation Name Comments [...] Sign Reading Time Taken Comments Blood Pressure 126/79 09/20/2023 11:42 AM CDT Pulse 76 09/20/2023 11:42 AM CDT Temperature 36.7 ??C (98 ??F) 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 Respiratory Rate - - Oxygen Saturation - - Inhaled Oxygen Concentration - - Weight 61.2 kg (135 lb) 09/20/2023 11:42 AM CDT Height 161.3 cm (5' 3.5) 11/26/2021 9:31 AM CDT Body Mass Index 23.54 11/26/2021 9:31 AM CDT Plan of Treatment Upcoming Encounters Date Type Department Care Team (Late st Contact Info) Description 02/07/2024 9:45 AM CDT Appointment Rheumatology at [facility] [address] [id number] Quinn Oh MD [address] [place], [place] [phone] Health Maintenance Due Date Last Done Comments Cervical Cancer Screening Due 1959 Colon Cancer Screening Plan Due 1960 Mammogram 1959 HIV Screening (Preventive Services) 1975 Adult Preventive Visit 07/01/1977 DTaP/Tdap/Td (1 - Tdap) 07/01/1978 Cholesterol 07/01/2004 Zoster/Shingles (2 of 2) 09/29/2023 08/04/2023 COVID-19 Vaccine ( season) 2023 01/15/2023, 02/08/2022, 08/13/2021, Additional history exists Influenza (#1) 2023 01/10/2023, 11/0 04/2021, 01/22/2021 Dexa 01/21/2024 01/20/2022 RSV (1 - 1-dose 75+ series) 07/01/2034 Hep C Screening (Preventive Services) Completed 11/26/2021 Pneumococcal Aged Out 08/12/2022, 01/11/2020 No lo nger eligible based on patient's age to complete this topic HepA Aged Out No longer eligi ble [...] Procedure Name Priority Date/Time Associated Diagnosis Comments DXA BONE DENSITY SPINE/HIP Routine 01/20/2022 9:56 AM CDT prison current use of systemic steroids HEPATITIS C ANTIBODY, WITH REFLEX Routine 11/26/2021 10:58 AM CDT 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 from Last 3 Months or Most Recently Relevant to Health Maintenance Results * DXA Bone Density Spine/Hip (01/20/2022 9:56 AM CDT) Anatomical Region Laterality Modality Lower Extremity, Spine, Hip, L-Spine Radiographic Imaging Narrative 01/28/2022 2:49 PM CDT CLINIC DXA REPORT Patient Name: ??Duyen Miller Densitometer: ??[employer] Horizon W (S/N [id number]) SAMUEL BONE OSTEOPOROSIS RISK FACTORS FROM PATIENT QUESTIONNAIRE: ?? The patient is a 61 y.o.female: she was able to rise easily from a chair, menopause at age 45 (hysterectomy), calcium intake is inadequate, there is no self-reported personal history of fragility fracture, there is a family history in a first-degree relative of hip, pelvis, and/or spine fracture, 1 indoor and outdoor fall in the last 12 months, chronic systemic corticosteroid use, current alendronate therapy. BONE MINERAL DENSITY: Lumbar Spine Vertebrae Included: L1;L2;L3;L4 Bone Mineral Density (gm/cm2): 0.852 T-Score: -1.8 Z-Score: -0.2 Total Hip Bone Mineral Density (gm/cm2): 0.931 (L) T-Score: -0.1 Z-Score: 1 Femoral Neck Bone Mineral Density (gm/cm2): 0.691 T-Score: -1.4 Z-Score: 0 FRAX 10 year probability major osteoporotic fracture: 22.5% 10 year probability hip fracture: 1.3% Fracture risk is based on bone density, age, ethnicity, and other BMD-independent risk factors noted from the questionnaire and the FRAX score, if available. ??See different fracture risk categories below under definitions. (FRAX is underestimated when T-score of lumbar spine is lower than T-score of femoral neck) VFA (Vertebral Fracture Assessment) (T5-L5): Vertebral fracture assessment was not completed for this study. ASSESSMENT: 1: ??Mild low bone mass (osteopenia), based on the lowest T-score at the lumbar spine 2: ??This is a baseline bone density study (first one at [facility]). ?? 3: ??Fracture risk assessment: high future fracture risk. RECOMMENDATIONS: 1: ??Recommend adequate calcium and vitamin D intake. 2: ??Consider repeat bone density in 2 years. Definitions (T-Score = Standard deviations above/below mean peak adult) (Z-Score = Standard deviations above/below mean age/sex-matched peers) ISCD Standards: ??For a more accurate fracture risk assessment, reference data is used for all ethnic groups and the 1/3 region is reported for the forearm. WHO DEFINITIONS: Normal BMD: T-score ? -1.0 Osteopenia: T-score between -1.0 and -2.5 Osteoporosis: T-score ? -2.5 FRAX Score : ??The FRAX?? algorithms give the 10-year probability of fracture. The output is a 10-year probability of hip fracture and the 10-year probability of a major osteoporotic fracture (clinical spine, forearm, hip or shoulder fracture). ?? The FRAX score takes into account the bone density, but also age, gender, weight, height, previous fracture, parental hip fracture, smoking status, glucocorticoid intake, history of RA, secondary osteoporosis, and high alcohol intake in determining fracture risk in patients with osteopenia and osteoporosis. FRAX fracture risk estimates are adjusted for Trabecular Bone Score (TBS) when available. Trabecular Bone Score (TBS) is a measure of the microarchitectural integrity of trabecular bone, and is derived from the utdil-fk-lwyhy changes of bone density embedded in the AP spine BMD image. TBS is only modestly correlated with BMD, and is modestly associated with incident major osteoporotic and hip fractures independent of BMD and other risk factors. FRAX and Fracture Risk Categories in terms of major osteoporotic fracture risk (clinical spine, forearm, hip, or shoulder): < 10% ?= ?low fracture risk ? 10% and <15% ?= ?mildly increased fracture risk ? 15% and <20% ?= ?moderately increased fracture risk ? 20% and <30% ?= ?high fracture risk ? 30% ?= ?very high fracture risk A clinician may consider FDA-approved medical therapies in postmenopausal women and men aged 50 years and older, if one or more of the following is present (clinical correlation required and therapy may not always be indicated): 1. ??The patient has a hip or vertebral (clinical or morphometric) fracture. 2. ??T-score ? -2.5 at the femoral neck, hip, or spine after appropriate evaluation to exclude secondary causes. 3. ??Low bone mass (T-score between -1.0 and -2.5 at the femoral neck, hip or spine) and a 10-year probability of a hip fracture ? 3% or a 10-year probability of a major osteoporosis-related fracture ? 20% based on the FRAX scores. 4. ??Clinicians judgment and/or patient preferences may result in a decision to patients with 10-year fracture probabilities above or below these levels. Quinn Oh MD RAD DEXA * Hepatitis C Antibody, with Reflex (11/26/2021 10:58 AM CDT) Hepatitis C Antibody Negative (Non Reactive) Negative (Non Reactive) 11/26/2021 7:37 PM CDT [facility] Comment:Antibodies to HCV no t detected. Does not exclude the possiblity of exposure to HCV. Blood Venipuncture / Unknown 11/26/2021 10:58 AM CDT 11/26/2021 10:58 AM CDT Quinn Oh MD LAB[facility] [address] [place] [address], [facility] from Last 3 Months or Most Recently Relevant to Health Maintenance Care Teams Hospice Bereavement Coordinator Relationship Specialty Start Date End Date Found, No Pcp, [address] [place] [address] PCP - General 11/26/21
== END 2024-01-11 09:14 | disposition home or self-care (01) ==
LOC: NFLDREF 01-12 09:11
PROVIDERS: PCP Internal Medicine; Referring Provider Internal Medicine; Visit Provider Internal Medicine
DX: F10.90 Alcohol use, unspecified, uncomplicated (principal); M85.80 Other specified disorders of bone density and structure, unspecified site; L94.0 Localized scleroderma [morphea]
CPT/HCPCS: 82306

== ENCOUNTER 2024-01-15 09:38 | Outpatient (CLI) | payer OTHER, SELFPAY ==
--- OUTSIDE RECORDS SUMMARY | 2024-01-15 09:41 | XMS_ITS | Clinical Summary ---
[facility] Organization [facility] Address [address] [place] [address] Care Team Providers Care Heavy Equipment Service Manager Name Role Phone Found, No Pcp MD Primary Care Provider Unavailab le Source Comments You are receiving this document as you are listed as the primary care provider,follow-up provider, or the patient has been referred to you for consultation.This is in compliance with the Medicare and[facility] EHR Incentive Program,which states Providers who transition their patient to another setting of careor provider of care or refers their patient to another provider of care shouldprovide summary care record for each transition of care or referral. 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 11/26 Immunosuppression due to drug therapy 11/26/2021 Immunizations Name Administration Dates Next Due Influenza IIV4 (Quadrivalent) 0.5mL (28555) 1006/2022,02/08/2022,01/22/2021 Moderna COVID-19 12+ 01/15/2023 Moderna Monovalent 12+ 08/13/2021 PCV20 ([id number]) 08/12/2022 PPSV23 (Pneumovax) 01/11/2020 Pfizer Bivalent 12+ [...] 36.7 ??C (98 ??F) 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 Respiratory Rate - - Oxygen Saturation - - Inhaled Oxygen Concentration - - Weight 61.2 kg (135 lb) 09/20/2023 11:42 AM CDT Height 161.3 cm (5' 3.5) 11/26/2021 9:31 AM CDT Body Mass Index 23.54 11/26/2021 9:31 AM CDT Plan of Treatment Upcoming Encounters Date Type Department Care Team (Late st Contact Info) Description 02/07/2024 9:45 AM CDT Appointment Rheumatology at [facility] [address] [id number] Quinn Oh MD [address] [place], [place] [phone] Health Maintenance Due Date Last Done Comments [...] on patient's age to complete this topic RSV Aged Out No longer eligi ble based on patient's age to complete this topic MCV4 Aged Out No longer eligi ble based on patient's age to complete this topic Procedures Procedure Name Priority Date/Time Associated Diagnosis Comments DXA BONE DENSITY SPINE/HIP Routine 01/20/2022 9:56 AM CDT group home current use of systemic steroids HEPATITIS C [...] DXA REPORT Patient Name: ??Duyen Miller Densitometer: ??[employer] W (S/N [id number]) SAMUEL BONE OSTEOPOROSIS RISK FACTORS FROM PATIENT [...] baseline bone density study (first one at [facility]). ?? 3: ??Fracture risk assessment: high future [...] trabecular bone, and is derived from the uagob-tx-fbxwz changes of bone density embedded in the [...] Antibody, with Reflex (11/26/2021 10:58 AM CDT) Pathologist [facility] Hepatitis C Antibody Negative (Non Reactive) Negative (Non Reactive) 11/26/2021 7:37 PM CDT [facility] Comment:Antibodies to HCV no t detected. Does not exclude the possiblity of exposure to HCV. Blood Venipuncture / Unknown 11/26/2021 10:58 AM CDT 11/26/2021 10:58 AM CDT Quinn Oh MD [facility] [address] [place] [address], [facility] from Last 3 Months or Most Recently Relevant to Health Maintenance Care Teams Heavy Equipment Service Manager Relationship Specialty Start Date End Date Found, No Pcp, [address] [place] [address] PCP - General 11/26/21
== END 2024-01-15 09:39 | disposition home or self-care (01) ==
PROVIDERS: PCP Internal Medicine; Visit Provider Internal Medicine
DX: F10.90 Alcohol use, unspecified, uncomplicated (principal)
CPT/HCPCS: 84450; 84460

== ENCOUNTER 2024-04-29 13:27 | Outpatient (CLI) | payer OTHER, SELFPAY ==
--- NOTE | 2024-04-29 13:40 | CRLHL7_ITS ---
For Patients: As a result of the Century Cures Act, medical imaging exams and procedure reports are released immediately into your electronic medical record. You may view this report before your referring provider. If you have questions, please contact your health care provider. BILATERAL SCREENING MAMMOGRAM WITH COMPUTER-AIDED DETECTION AND TOMOSYNTHESIS TECHNIQUE: CC and MLO views were obtained. These mammographic images have been obtained using full-field digital technique. These mammographic images were interpreted with the benefit of computer-aided detection. Breast Tomosynthesis was used in this interpretation. COMPARISON FILM: 03/24/23, 12/01/21, 11/26/20. FINDINGS: There are scattered areas of fibroglandular density. IMPRESSION: There is no radiographic evidence for malignancy. ASSESSMENT: BI-RADS Category 2: Benign RECOMMENDATION: Routine screening mammogram in 1 year. A lay language report of this examination will be provided to the patient. Hipolito Cherry M.D. Diagnostic/Nuclear Medicine Radiologist [email or web address] AMAYA/adi SP/Dictated by: Hipolito Cherry MD @ 05/01/2024 12:12:00 PM (Electronically Signed)
== END 2024-04-29 13:28 | disposition home or self-care (01) ==
LOC: MAMMO 13:28
PROVIDERS: PCP Internal Medicine; Visit Provider Internal Medicine
DX: Z12.31 Encounter for screening mammogram for malignant neoplasm of breast (principal)
CPT/HCPCS: 77063; 77067

== ENCOUNTER 2025-01-10 08:30 | Outpatient (CLI) | payer MEDICARE, BC, SELFPAY | END 2025-01-10 08:31 | disposition home or self-care (01) | LOC: NFLDREF 01-18 04:21 | PROVIDERS: PCP Internal Medicine; Referring Provider Internal Medicine; Visit Provider Internal Medicine | DX: F10.90 Alcohol use, unspecified, uncomplicated (principal); E78.5 Hyperlipidemia, unspecified; M85.80 Other specified disorders of bone density and structure, unspecified site; F41.1 Generalized anxiety disorder | CPT/HCPCS: 80061; 82306; 84450; 84460 ==